=== PATIENT | female | born 1975 | race Caucasian/White ===

== ENCOUNTER 2022-03-24 13:25 | Outpatient (CLI) | payer OTHER, SELFPAY ==
--- NOTE | 2022-03-24 13:45 | CRLHL7_ITS ---
For Patients: As a result of the Cures Act, medical imaging exams and procedure reports are released immediately into your electronic medical record. You may view this report before your referring provider. If you have questions, please contact your health care provider. INDICATION: Migraines. TECHNIQUE: Brain MRI without contrast. The following sequences were obtained: Sagittal T1 weighted sequence. DWI and ADC mapping sequences. Axial FLAIR and ALEXANDRA T2 weighted sequences. COMPARISON: None. FINDINGS: No evidence of acute ischemia. No evidence of acute or chronic intracranial blood products. No pathologic intracranial signal abnormality. No mass effect or herniation. No hydrocephalus or extra-axial collections. The pituitary gland, parasellar structures and optic chiasm are normal. Posterior fossa is normal. All the major intracranial vascular structures demonstrate normal flow-related signal. The orbital contents are normal. No calvarial or skull base marrow replacing process. Moderate right maxillary mucosal thickening with dependent frothy secretions. No extracranial soft tissue findings. IMPRESSION: 1. No significant intracranial pathology. Dictated by Germain Saez MD @ 03/24/2022 2:44:48 PM (Electronically Signed)
== END 2022-03-24 13:26 | disposition home or self-care (01) ==
LOC: MRI 13:26
PROVIDERS: PCP Family Medicine; Visit Provider Family Medicine
DX: G44.009 Cluster headache syndrome, unspecified, not intractable (principal)
CPT/HCPCS: 70551

== ENCOUNTER 2022-06-09 14:28 | Outpatient (CLI) | payer OTHER, SELFPAY ==
--- NOTE | 2022-06-09 14:40 | CRLHL7_ITS ---
For Patients: As a result of the Century Cures Act, medical imaging exams and procedure reports are released immediately into your electronic medical record. You may view this report before your referring provider. If you have questions, please contact your health care provider. BILATERAL SCREENING MAMMOGRAM WITH COMPUTER-AIDED DETECTION AND TOMOSYNTHESIS TECHNIQUE: CC and MLO views were obtained. These mammographic images have been obtained using full-field digital technique. These mammographic images were interpreted with the benefit of computer-aided detection. Breast Tomosynthesis was used in this interpretation. COMPARISON FILM: 09/21/18. FINDINGS: The breasts are heterogeneously dense, which may obscure small masses IMPRESSION: There is no radiographic evidence for malignancy. ASSESSMENT: BI-RADS Category 1: Negative RECOMMENDATION: Routine screening mammogram in 1 year. A lay language report of this examination will be provided to the patient. Eladio Tomlin M.D. Diagnostic Radiologist [email or web address] MELCHOR/Dictated by: Eladio Tomlin MD @ 06/10/2022 8:42:00 AM (Electronically Signed)
== END 2022-06-09 14:29 | disposition home or self-care (01) ==
LOC: MAMMO 14:29
PROVIDERS: PCP Physician Assistant Medical; Visit Provider Physician Assistant
DX: Z12.31 Encounter for screening mammogram for malignant neoplasm of breast (principal); R92.2 Inconclusive mammogram
CPT/HCPCS: 77063; 77067

== ENCOUNTER 2022-07-04 06:51 | Observation (INO) | payer OTHER, SELFPAY ==
[2022-07-04] VITALS (19 sets, daily range): BP systolic 115–154; BP diastolic 70–94; PULSE 70–98; RESP 16–20; TEMP 36.8; O2SAT 93–99; BMI 29.3; BMI 28.8
--- NOTE | 2022-07-04 07:29 | CRLHL7_ITS ---
For Patients: As a result of the 21st Century Cures Act, medical imaging exams and procedure reports are released immediately into your electronic medical record. You may view this report before your referring provider. If you have questions, please contact your health care provider. INDICATION: Clinical signs and symptoms of pulmonary embolus. COMPARISON: None TECHNIQUE: : CT examination of the chest was performed with the uneventful intravenous administration of 95 cc of Isovue 3 7 while thin axial sections were obtained from above the apices of the lungs to the lung bases. Please note that all CT scans at this facility use dose modulation, iterative reconstruction, and/or weight-based dosing when appropriate to reduce radiation dose to as low as reasonably achievable. FINDINGS: : HEART and MEDIASTINUM: The heart size is normal. There is no mediastinal or hilar adenopathy or mass. PULMONARY ARTERIAL CIRCULATION: There is a small clot burden pulmonary embolus primarily involving the left lower lobe. RV/LV ratio: Elevated at 1.3. Greater than 0.9 is considered indicative of right heart strain LUNGS: Left basilar airspace process probably atelectasis. PLEURAL SPACES: Small left effusion VISUALIZED UPPER ABDOMEN: The upper pole of the left kidney as visualized appears abnormal. There is a mass laterally in the left upper pole measuring 2.8 centimeters. There is also a small amount of fluid in the lateral conal fascia. This could be a subacute renal infarct, acute pyelonephritis or a mass. Follow-up for formal evaluation recommended at a clinically appropriate time. A multiphase CT could be performed. An ultrasound could also be considered. OSSEOUS STRUCTURES: Age-appropriate appearance. No acute fracture or destructive process. TUBES and LINES: None. CHEST WALL: Prominent bilateral axillary lymph nodes, likely reactive I discussed this case with Dr. Pressley at 8:30 a.m. on July 04, 2022 IMPRESSION: 1. Small clot burden pulmonary embolus primarily involving the left lower lobe. Left lower lobe atelectasis and left effusion. 2. There is evidence of right heart strain as indicated by an elevated RV/LV ratio of 1.3 3. Prominent bilateral axillary lymph nodes likely reactive 4. Left renal mass measuring 2.8 centimeters. Differential considerations are subacute renal infarct, acute pyelonephritis or a mass. Follow-up recommended at a clinically appropriate time Please note that all CT scans at this facility use dose modulation, iterative reconstruction, and/or weight-based dosing when appropriate to reduce radiation dose to as low as reasonably achievable. Dictated by Israel Quiroz MD @ 07/04/2022 8:32:35 AM (Electronically Signed)
--- NOTE | 2022-07-04 07:33 | ED.CHESTPAIN ---
HPI - Chest Pain General Chief Complaint: Rib Pain <Emerita Hoffman MD - Last Filed: 07/04/22 07:57> Stated Complaint: Chest pain/arm numbness <Emerita Hoffman MD - Last Filed: 07/04/22 07:57> Time Seen by Provider: 07/04/22 07:09 <Emerita Hoffman MD - Last Filed: 07/04/22 07:57> Source: patient <Emerita Hoffman MD - Last Filed: 07/04/22 07:57> Mode of arrival: ambulatory <Emerita Hoffman MD - Last Filed: 07/04/22 07:57> Limitations: no limitations <Emerita Hoffman MD - Last Filed: 07/04/22 07:57> History of Present Illness HPI narrative: 47-year-old female on combined oral contraceptive presents to the emergency department with left anterior ribs/epigastric pain for the past 1-2 weeks, worsening significantly this morning at 2:00 a.m.. Pain is worse with inspiration and does somewhat radiate now with an achy pain to the left shoulder. Initially was sharp. It was accompanied by a sensation of numbness in both arms that lasted about 1-2 minutes. The numbness has mostly resolved. She reports that she has also been having some intermittent numbness in her 4th and 5th fingers on the right hand but thinks that that is positional and not related to current symptoms on my specific questioning. She does have a notable history of ocular migraines and was worked up for these through my clinic within the past year. She has been using NSAIDs most days as well as rare use of muscle relaxants. Overall, this is working fairly well. She has no history of DVT nor PE. Her chest pain is not exertional. She does have an family history of heart disease but not premature ages. As stated she does take a combined oral contraceptive which we have discussed tapering off of in the past. She had initially thought that her symptoms could be bowel related. She is status post cholecystectomy. No significant alcohol ingestion or prior history of pancreatitis. She has not noted any rash that would be consistent with shingles. She did not try taking any other medication prior to coming to the ED this morning with her symptoms. She states that she has had a low-grade fever around 99.5 intermittently for the last few days but no other localizing symptoms of acute illness. Dinner last night because they got home late from social events was chicken nuggets with mac and cheese, but not atypical. Past medical history is notable for depression, ocular migraines. Surgical history is notable for prior cholecystectomy. Family history does have some heart disease but not overwhelmingly premature. Home meds are high-dose combined oral contraceptive and citalopram 20 mg once daily. She also has a prescription for citalopram which she uses for her migraines, last use once within the last few days. <Emerita Hoffman MD - Last Filed: 07/04/22 07:57> Related Data Home Medications: Home Medications Medication Instructions Recorded Confirmed citalopram 20 mg tablet 20 mg PO DAILY 07/04/22 07/04/22 cyclobenzaprine 5 mg tablet 5 mg PO TID PRN 07/04/22 07/04/22 norethindrone 1.5 mg-ethinyl 1 tab PO DAILY 07/04/22 07/04/22 estradiol 30 mcg(21)/iron 75 mg(7) tablet (Junel FE 1.5/30 (28)) <Emerita Hoffman MD - Last Filed: 07/04/22 07:57> Allergies/Adverse Reactions: Allergies Allergy/AdvReac Type Severity Reaction Status Date / Time No Known Drug Allergies Allergy Verified 07/04/22 07:58 <Emerita Hoffman MD - Last Filed: 07/04/22 07:57> Review of Systems Narrative Notable for the generalized, chest and GI symptoms as above. Otherwise she denies times 10 systems. <Emerita Hoffman MD - Last Filed: 07/04/22 07:57> [facility] Medical History: Medical History Anxiety and depression Conjunctivitis Kidney stone Sacroiliac pain Vertigo <Emerita Hoffman MD - Last Filed: 07/04/22 07:57> Surgical History: Surgical History History of cholecystectomy <Emerita Hoffman MD - Last Filed: 07/04/22 07:57> Social History: Social History Smoking Status: Never smoker Second hand tobacco smoke exposure: No How often do you have a drink containing alcohol: never How often do you have six or more drinks on one occasion: Never AUDIT-C Alcohol total score: 0 Non-prescribed substance use: denies use <Emerita Hoffman MD - Last Filed: 07/04/22 07:57> Exam Const Vital Signs, click to edit/add: Vital Signs - 24 hr 07/04/22 07:04 07/04/22 09:12 Temperature 98.2 F Pulse Rate [Right Pulse Oximeter] 97 Respiratory Rate 18 Blood Pressure [Right Upper Arm] 154/94 H Pulse Oximetry 99 95 Oxygen Delivery Method Room Air <Emerita Hoffman MD - Last Filed: 07/04/22 07:57> Vital Signs - 24 hr 07/04/22 07:04 07/04/22 09:12 Temperature 98.2 F Pulse Rate [Right Pulse Oximeter] 97 Respiratory Rate 18 Blood Pressure [Right Upper Arm] 154/94 H Pulse Oximetry 99 95 Oxygen Delivery Method Room Air <Nirmala Pressley MD - Last Filed: 07/04/22 11:25> Documenting provider has reviewed patient's vital signs: yes <Emerita Hoffman MD - Last Filed: 07/04/22 07:57> Common normals: no apparent distress <Emerita Hoffman MD - Last Filed: 07/04/22 07:57> General appearance: cooperative, comfortable and well kempt <Emerita Hoffman MD - Last Filed: 07/04/22 07:57> HENMT Common normals: normocephalic <Emerita Hoffman MD - Last Filed: 07/04/22 07:57> Head and scalp: normocephalic <Emerita Hoffman MD - Last Filed: 07/04/22 07:57> Mouth: oral and palatal mucosa normal <Emerita Hoffman MD - Last Filed: 07/04/22 07:57> Throat: posterior oropharynx normal <Emerita Hoffman MD - Last Filed: 07/04/22 07:57> Eye Common normals: EOMs intact bilaterally, conjunctivae normal and no scleral icterus <MD Irma Fournier Last Filed: 07/04/22 07:57> Conjunctiva: conjunctiva(e) normal <MD Irma Fournier Last Filed: 07/04/22 07:57> Neck & C-Spine Common normals: full ROM, no lymphadenopathy and no meningeal signs <MD Irma Fournier Last Filed: 07/04/22 07:57> Resp Common normals: normal respiratory effort and clear to auscultation bilaterally <MD Irma Fournier Last Filed: 07/04/22 07:57> Auscultation: clear to auscultation bilaterally; no crackles, no rales, no rhonchi, no wheezes and lung sounds not diminished <MD Irma Fournier Last Filed: 07/04/22 07:57> Cardio Common normals: regular rate, regular rhythm, S1 normal heart sound, S2 normal heart sound and peripheral pulses 2+ throughout; murmurs detected <MD Irma Fournier Last Filed: 07/04/22 07:57> Rate: regular rate <MD Irma Fournier Last Filed: 07/04/22 07:57> Rhythm: regular rhythm <MD Irma Fournier Last Filed: 07/04/22 07:57> Heart sounds: S1 normal and S2 normal <MD Irma Fournier Last Filed: 07/04/22 07:57> Peripheral pulses: pulses 2+ throughout <MD Irma Fournier Last Filed: 07/04/22 07:57> GI Common normals: Normal to inspection, nondistended, normoactive bowel sounds present, soft to palpation, non-tender, no hepatosplenomegaly and no masses <MD Irma Fournier Last Filed: 07/04/22 07:57> Palpation: soft and no hepatosplenomegaly <MD Irma Fournier Last Filed: 07/04/22 07:57> Common normals: no CVA tenderness <Emerita Hoffman MD - Last Filed: 07/04/22 07:57> Bladder/kidney exam: no CVA tenderness <Emerita Hoffman MD - Last Filed: 07/04/22 07:57> Back & Pelvis Common normals: no CVA tenderness <Emerita Hoffman MD - Last Filed: 07/04/22 07:57> Extremity Common normals: full ROM, normal capillary refill and no pedal edema <Emerita Hoffman MD - Last Filed: 07/04/22 07:57> Neuro Meningeal signs: no meningeal signs <Emerita Hoffman MD - Last Filed: 07/04/22 07:57> Speech: speech normal <Emerita Hoffman MD - Last Filed: 07/04/22 07:57> Motor exam: strength 5/5 throughout, no tremor noted and no movement abnormalities noted <Emerita Hoffman MD - Last Filed: 07/04/22 07:57> Psych Common normals: thought process normal and speech normal <Emerita Hoffman MD - Last Filed: 07/04/22 07:57> Appearance: well kempt <Emerita Hoffman MD - Last Filed: 07/04/22 07:57> Attitude: engaged <Emerita Hoffman MD - Last Filed: 07/04/22 07:57> Activity/motor behavior: appropriate eye contact <Emerita Hoffman MD - Last Filed: 07/04/22 07:57> Speech: normal speech <Emerita Hoffman MD - Last Filed: 07/04/22 07:57> Mood and affect: euthymic mood <MD Irma Fournier Last Filed: 07/04/22 07:57> Thought process: normal thought process <MD Irma Fournier Last Filed: 07/04/22 07:57> Thought content: normal thought content <MD Irma Fournier Last Filed: 07/04/22 07:57> Attention/concentration: attention grossly intact <Emerita Hoffman MD - Last Filed: 07/04/22 07:57> Memory/cognition: memory grossly intact <Emerita Hoffman MD - Last Filed: 07/04/22 07:57> Insight: insight good <Emerita Hoffman MD - Last Filed: 07/04/22 07:57> Judgement: judgment good <Emerita Hoffman MD - Last Filed: 07/04/22 07:57> Skin Common normals: no rashes or lesions noted <Emerita Hoffman MD - Last Filed: 07/04/22 07:57> General skin exam: no rashes or lesions noted <Emerita Hoffman MD - Last Filed: 07/04/22 07:57> Course Course Hospital Course: Labs returned with an elevated D-dimer, patient proceeded to chest CT which did show a left-sided PE, right-sided heart strain and abnormality of the left kidney. Renal ultrasound shows a mass of the left kidney and multiphase CT or MRI recommended. Given her left heart strain, echocardiogram also recommended. <Emerita Hoffman MD - Last Filed: 07/04/22 07:57> Vital Signs Vital signs: Initial Vital Signs Temperature 98.2 F 07/04/22 07:04 Temperature Source Temporal Artery Scan 07/04/22 07:04 Pulse Rate 97 07/04/22 07:04 Respiratory Rate 18 07/04/22 07:04 Blood Pressure 154/94 H 07/04/22 07:04 Blood Pressure Mean 114 07/04/22 07:04 Blood Pressure Position Sitting 07/04/22 07:04 Pulse Oximetry 99 07/04/22 07:04 Oxygen Delivery Method 07/04/22 07:04 Vital Signs Temperature 98.2 F 07/04/22 07:04 Pulse Rate 97 07/04/22 07:04 Respiratory Rate 18 07/04/22 07:04 Blood Pressure 154/94 H 07/04/22 07:04 Pulse Oximetry 99 07/04/22 07:04 Oxygen Delivery Method 07/04/22 07:04 Temperature 98.2 F 07/04/22 07:04 Pulse Rate 97 07/04/22 07:04 Respiratory Rate 18 07/04/22 07:04 Blood Pressure 154/94 H 07/04/22 07:04 Pulse Oximetry 95 07/04/22 09:12 Oxygen Delivery Method 07/04/22 07:04 <Emerita Hoffman MD - Last Filed: 07/04/22 07:57> Initial Vital Signs Temperature 98.2 F 07/04/22 07:04 Temperature Source Temporal Artery Scan 07/04/22 07:04 Pulse Rate 97 07/04/22 07:04 Respiratory Rate 18 07/04/22 07:04 Blood Pressure 154/94 H 07/04/22 07:04 Blood Pressure Mean 114 07/04/22 07:04 Blood Pressure Position Sitting 07/04/22 07:04 Pulse Oximetry 99 07/04/22 07:04 Oxygen Delivery Method 07/04/22 07:04 Vital Signs Temperature 98.2 F 07/04/22 07:04 Pulse Rate 97 07/04/22 07:04 Respiratory Rate 18 07/04/22 07:04 Blood Pressure 154/94 H 07/04/22 07:04 Pulse Oximetry 99 07/04/22 07:04 Oxygen Delivery Method 07/04/22 07:04 Temperature 98.2 F 07/04/22 07:04 Pulse Rate 97 07/04/22 07:04 Respiratory Rate 18 07/04/22 07:04 Blood Pressure 154/94 H 07/04/22 07:04 Pulse Oximetry 95 07/04/22 09:12 Oxygen Delivery Method 07/04/22 07:04 <Nirmala Pressley MD - Last Filed: 07/04/22 11:25> MDM - Chest Pain MDM Narrative Medical decision making narrative: Differential diagnosis including shingles which was ruled out by exam, acute coronary syndrome, more likely pulmonary embolism based on risk factors of female gender, use of oral contraception containing estrogen. Atypical pneumonia, gastritis, gastric ulcer, GERD, pancreatitis, musculoskeletal etiology. Offered pain medication, she declines at this time which is reasonable. Would recommend that we start with IV, labs, urine test I would recommend that we moved to CT PA based on the oral contraception and pulse near 100. If this is negative, I would recommend medications to target a GI etiology as the next steps. Patient will be placed on a quality assurance monitor. <Emerita Hoffman MD - Last Filed: 07/04/22 07:57> Differential diagnosis including shingles which was ruled out by exam, acute coronary syndrome, more likely pulmonary embolism based on risk factors of female gender, use of oral contraception containing estrogen. Atypical pneumonia, gastritis, gastric ulcer, GERD, pancreatitis, musculoskeletal etiology. Offered pain medication, she declines at this time which is reasonable. Would recommend that we start with IV, labs, urine test I would recommend that we moved to CT PA based on the oral contraception and pulse near 100. If this is negative, I would recommend medications to target a GI etiology as the next steps. Patient will be placed on a quality assurance monitor. 47-year-old female with PE, renal mass of unclear etiology, right heart strain. Patient will be admitted for further management. <Nirmala Pressley MD - Last Filed: 07/04/22 11:25> Medical Records Data Attestation: I reviewed the patient's medical records. <Emerita Hoffman MD - Last Filed: 07/04/22 07:57> Lab Data Attestation: I reviewed the patient's lab results. <Nirmala Pressley MD - Last Filed: 07/04/22 11:25> Labs: Lab Results 07/04/22 07/04/22 07/04/22 Range/Units 07:38 07:38 07:38 WBC 8.57 (4.50-11.00) K/uL RBC 3.79 L (4.00-5.20) m/uL Hgb 11.8 L (12.0-16.0) gm/dL Hct 34.2 (33.0-51.0) % MCV 90 (80-100) fL MCH 31 (26-34) pg MCHC 35 (32-36) gm/dL RDW Coeff of Shad 12.4 (11.5-15.5) % Plt Count 350 (140-440) K/uL Neut % (Auto) 85.0 H (42.0-72.0) % Lymph % (Auto) 10.0 L (20-44) % [place] % (Auto) 4.0 (0.0-11.0) % Eos % (Auto) 0.4 (0.0-7.0) % Baso % (Auto) 0.5 (0.0-3.0) % Neut # (Auto) 7.30 H (1.7-7.0) K/uL Lymph # (Auto) 0.90 (0.90-2.90) K/uL [place] # (Auto) 0.30 (0.00-0.90) K/UL Eos # (Auto) 0.03 (0.00-0.50) K/uL Baso # (Auto) 0.04 (0.00-0.30) K/uL Abs Immat Gran (auto) 0.01 (0.00-0.30) K/uL D-Dimer Quant (PE/DVT) 1.05 H (0.00-0.50) ug/ml Sodium 139 (135-149) mmol/L Potassium 3.6 (3.6-5.1) mmol/L Chloride 104 (96-114) mmol/L Carbon Dioxide 26 (20-32) mmol/L BUN 12 (5-24) mg/dL Creatinine 0.7 (0.5-1.5) mg/dL Estimated Creat Clear 72.90 Estimated GFR 109 ml/min Glucose 107 (60-115) mg/dL Calcium 9.1 (8.4-10.6) mg/dL Total Bilirubin 0.5 (0.1-1.5) mg/dL AST 26 (12-35) U/L ALT 24 (4-35) U/L Alkaline Phosphatase 109 (40-150) U/L Troponin I (0.01-0.04) ng/mL C-Reactive Protein (0.5-1.0) mg/dL NT-Pro-B Natriuret Pep (0-125) PG/mL Total Protein 7.6 (6.0-8.3) g/dL Albumin 4.2 (3.3-5.0) g/dL Lipase (23-300) U/L HCG, Qual (Negative) Urine Color (Yellow) Urine Appearance (Clear) Urine pH (5.0-8.5) Ur Specific [place] (1.000-1.030) Urine Protein (Negative) Urine Glucose (UA) (Negative) Urine Ketones (Negative) Urine Blood (Negative) Urine Nitrite (Negative) Urine Bilirubin (Negative) Urine Urobilinogen (0.2-1.0) Ur Leukocyte Esterase (Negative) Urine RBC (0-2) Urine WBC (0-5) Ur Squamous Epith Cells (None-Few) Amorphous Sediment (None) Urine Bacteria (None) POC Troponin I (0.01-0.04) ng/ml 07/04/22 07/04/22 07/04/22 Range/Units 07:38 07:38 07:38 WBC (4.50-11.00) K/uL RBC (4.00-5.20) m/uL Hgb (12.0-16.0) gm/dL Hct (33.0-51.0) % MCV (80-100) fL MCH (26-34) pg MCHC (32-36) gm/dL RDW Coeff of Shad (11.5-15.5) % Plt Count (140-440) K/uL Neut % (Auto) (42.0-72.0) % Lymph % (Auto) (20-44) % [place] % (Auto) (0.0-11.0) % Eos % (Auto) (0.0-7.0) % Baso % (Auto) (0.0-3.0) % Neut # (Auto) (1.7-7.0) K/uL Lymph # (Auto) (0.90-2.90) K/uL [place] # (Auto) (0.00-0.90) K/UL Eos # (Auto) (0.00-0.50) K/uL Baso # (Auto) (0.00-0.30) K/uL Abs Immat Gran (auto) (0.00-0.30) K/uL D-Dimer Quant (PE/DVT) (0.00-0.50) ug/ml Sodium (135-149) mmol/L Potassium (3.6-5.1) mmol/L Chloride (96-114) mmol/L Carbon Dioxide (20-32) mmol/L BUN (5-24) mg/dL Creatinine (0.5-1.5) mg/dL Estimated Creat Clear Estimated GFR ml/min Glucose (60-115) mg/dL Calcium (8.4-10.6) mg/dL Total Bilirubin (0.1-1.5) mg/dL AST (12-35) U/L ALT (4-35) U/L Alkaline Phosphatase (40-150) U/L Troponin I (0.01-0.04) ng/mL C-Reactive Protein 3.9 H (0.5-1.0) mg/dL NT-Pro-B Natriuret Pep (0-125) PG/mL Total Protein (6.0-8.3) g/dL Albumin (3.3-5.0) g/dL Lipase 64 (23-300) U/L HCG, Qual Negative (Negative) Urine Color (Yellow) Urine Appearance (Clear) Urine pH (5.0-8.5) Ur Specific [place] (1.000-1.030) Urine Protein (Negative) Urine Glucose (UA) (Negative) Urine Ketones (Negative) Urine Blood (Negative) Urine Nitrite (Negative) Urine Bilirubin (Negative) Urine Urobilinogen (0.2-1.0) Ur Leukocyte Esterase (Negative) Urine RBC (0-2) Urine WBC (0-5) Ur Squamous Epith Cells (None-Few) Amorphous Sediment (None) Urine Bacteria (None) POC Troponin I 0.01 (0.01-0.04) ng/ml 07/04/22 07/04/22 Range/Units 07:38 08:55 WBC (4.50-11.00) K/uL RBC (4.00-5.20) m/uL Hgb (12.0-16.0) gm/dL Hct (33.0-51.0) % MCV (80-100) fL MCH (26-34) pg MCHC (32-36) gm/dL RDW Coeff of Shad (11.5-15.5) % Plt Count (140-440) K/uL Neut % (Auto) (42.0-72.0) % Lymph % (Auto) (20-44) % [place] % (Auto) (0.0-11.0) % Eos % (Auto) (0.0-7.0) % Baso % (Auto) (0.0-3.0) % Neut # (Auto) (1.7-7.0) K/uL Lymph # (Auto) (0.90-2.90) K/uL [place] # (Auto) (0.00-0.90) K/UL Eos # (Auto) (0.00-0.50) K/uL Baso # (Auto) (0.00-0.30) K/uL Abs Immat Gran (auto) (0.00-0.30) K/uL D-Dimer Quant (PE/DVT) (0.00-0.50) ug/ml Sodium (135-149) mmol/L Potassium (3.6-5.1) mmol/L Chloride (96-114) mmol/L Carbon Dioxide (20-32) mmol/L BUN (5-24) mg/dL Creatinine (0.5-1.5) mg/dL Estimated Creat Clear Estimated GFR ml/min Glucose (60-115) mg/dL Calcium (8.4-10.6) mg/dL Total Bilirubin (0.1-1.5) mg/dL AST (12-35) U/L ALT (4-35) U/L Alkaline Phosphatase (40-150) U/L Troponin I < 0.01 L (0.01-0.04) ng/mL C-Reactive Protein (0.5-1.0) mg/dL NT-Pro-B Natriuret Pep 470 H (0-125) PG/mL Total Protein (6.0-8.3) g/dL Albumin (3.3-5.0) g/dL Lipase (23-300) U/L HCG, Qual (Negative) Urine Color Yellow (Yellow) Urine Appearance Clear (Clear) Urine pH 7.0 (5.0-8.5) Ur Specific [place] 1.010 (1.000-1.030) Urine Protein Negative (Negative) Urine Glucose (UA) Negative (Negative) Urine Ketones Negative (Negative) Urine Blood 1+ A (Negative) Urine Nitrite Negative (Negative) Urine Bilirubin Negative (Negative) Urine Urobilinogen 1.0 (0.2-1.0) Ur Leukocyte Esterase 1+ A (Negative) Urine RBC 0-2 (0-2) Urine WBC 2-5 (0-5) Ur Squamous Epith Cells Many A (None-Few) Amorphous Sediment Few A (None) Urine Bacteria Moderate A (None) POC Troponin I (0.01-0.04) ng/ml <Emerita Hoffman MD - Last Filed: 07/04/22 07:57> Lab Results 07/04/22 07/04/22 07/04/22 Range/Units 07:38 07:38 07:38 WBC 8.57 (4.50-11.00) K/uL RBC 3.79 L (4.00-5.20) m/uL Hgb 11.8 L (12.0-16.0) gm/dL Hct 34.2 (33.0-51.0) % MCV 90 (80-100) fL MCH 31 (26-34) pg MCHC 35 (32-36) gm/dL RDW Coeff of Shad 12.4 (11.5-15.5) % Plt Count 350 (140-440) K/uL Neut % (Auto) 85.0 H (42.0-72.0) % Lymph % (Auto) 10.0 L (20-44) % [place] % (Auto) 4.0 (0.0-11.0) % Eos % (Auto) 0.4 (0.0-7.0) % Baso % (Auto) 0.5 (0.0-3.0) % Neut # (Auto) 7.30 H (1.7-7.0) K/uL Lymph # (Auto) 0.90 (0.90-2.90) K/uL [place] # (Auto) 0.30 (0.00-0.90) K/UL Eos # (Auto) 0.03 (0.00-0.50) K/uL Baso # (Auto) 0.04 (0.00-0.30) K/uL Abs Immat Gran (auto) 0.01 (0.00-0.30) K/uL D-Dimer Quant (PE/DVT) 1.05 H (0.00-0.50) ug/ml Sodium 139 (135-149) mmol/L Potassium 3.6 (3.6-5.1) mmol/L Chloride 104 (96-114) mmol/L Carbon Dioxide 26 (20-32) mmol/L BUN 12 (5-24) mg/dL Creatinine 0.7 (0.5-1.5) mg/dL Estimated Creat Clear 72.90 Estimated GFR 109 ml/min Glucose 107 (60-115) mg/dL Calcium 9.1 (8.4-10.6) mg/dL Total Bilirubin 0.5 (0.1-1.5) mg/dL AST 26 (12-35) U/L ALT 24 (4-35) U/L Alkaline Phosphatase 109 (40-150) U/L Troponin I (0.01-0.04) ng/mL C-Reactive Protein (0.5-1.0) mg/dL NT-Pro-B Natriuret Pep (0-125) PG/mL Total Protein 7.6 (6.0-8.3) g/dL Albumin 4.2 (3.3-5.0) g/dL Lipase (23-300) U/L HCG, Qual (Negative) Urine Color (Yellow) Urine Appearance (Clear) Urine pH (5.0-8.5) Ur Specific [place] (1.000-1.030) Urine Protein (Negative) Urine Glucose (UA) (Negative) Urine Ketones (Negative) Urine Blood (Negative) Urine Nitrite (Negative) Urine Bilirubin (Negative) Urine Urobilinogen (0.2-1.0) Ur Leukocyte Esterase (Negative) Urine RBC (0-2) Urine WBC (0-5) Ur Squamous Epith Cells (None-Few) Amorphous Sediment (None) Urine Bacteria (None) POC Troponin I (0.01-0.04) ng/ml 07/04/22 07/04/22 07/04/22 Range/Units 07:38 07:38 07:38 WBC (4.50-11.00) K/uL RBC (4.00-5.20) m/uL Hgb (12.0-16.0) gm/dL Hct (33.0-51.0) % MCV (80-100) fL MCH (26-34) pg MCHC (32-36) gm/dL RDW Coeff of Shad (11.5-15.5) % Plt Count (140-440) K/uL Neut % (Auto) (42.0-72.0) % Lymph % (Auto) (20-44) % [place] % (Auto) (0.0-11.0) % Eos % (Auto) (0.0-7.0) % Baso % (Auto) (0.0-3.0) % Neut # (Auto) (1.7-7.0) K/uL Lymph # (Auto) (0.90-2.90) K/uL [place] # (Auto) (0.00-0.90) K/UL Eos # (Auto) (0.00-0.50) K/uL Baso # (Auto) (0.00-0.30) K/uL Abs Immat Gran (auto) (0.00-0.30) K/uL D-Dimer Quant (PE/DVT) (0.00-0.50) ug/ml Sodium (135-149) mmol/L Potassium (3.6-5.1) mmol/L Chloride (96-114) mmol/L Carbon Dioxide (20-32) mmol/L BUN (5-24) mg/dL Creatinine (0.5-1.5) mg/dL Estimated Creat Clear Estimated GFR ml/min Glucose (60-115) mg/dL Calcium (8.4-10.6) mg/dL Total Bilirubin (0.1-1.5) mg/dL AST (12-35) U/L ALT (4-35) U/L Alkaline Phosphatase (40-150) U/L Troponin I (0.01-0.04) ng/mL C-Reactive Protein 3.9 H (0.5-1.0) mg/dL NT-Pro-B Natriuret Pep (0-125) PG/mL Total Protein (6.0-8.3) g/dL Albumin (3.3-5.0) g/dL Lipase 64 (23-300) U/L HCG, Qual Negative (Negative) Urine Color (Yellow) Urine Appearance (Clear) Urine pH (5.0-8.5) Ur Specific [place] (1.000-1.030) Urine Protein (Negative) Urine Glucose (UA) (Negative) Urine Ketones (Negative) Urine Blood (Negative) Urine Nitrite (Negative) Urine Bilirubin (Negative) Urine Urobilinogen (0.2-1.0) Ur Leukocyte Esterase (Negative) Urine RBC (0-2) Urine WBC (0-5) Ur Squamous Epith Cells (None-Few) Amorphous Sediment (None) Urine Bacteria (None) POC Troponin I 0.01 (0.01-0.04) ng/ml 07/04/22 07/04/22 Range/Units 07:38 08:55 WBC (4.50-11.00) K/uL RBC (4.00-5.20) m/uL Hgb (12.0-16.0) gm/dL Hct (33.0-51.0) % MCV (80-100) fL MCH (26-34) pg MCHC (32-36) gm/dL RDW Coeff of Shad (11.5-15.5) % Plt Count (140-440) K/uL Neut % (Auto) (42.0-72.0) % Lymph % (Auto) (20-44) % [place] % (Auto) (0.0-11.0) % Eos % (Auto) (0.0-7.0) % Baso % (Auto) (0.0-3.0) % Neut # (Auto) (1.7-7.0) K/uL Lymph # (Auto) (0.90-2.90) K/uL [place] # (Auto) (0.00-0.90) K/UL Eos # (Auto) (0.00-0.50) K/uL Baso # (Auto) (0.00-0.30) K/uL Abs Immat Gran (auto) (0.00-0.30) K/uL D-Dimer Quant (PE/DVT) (0.00-0.50) ug/ml Sodium (135-149) mmol/L Potassium (3.6-5.1) mmol/L Chloride (96-114) mmol/L Carbon Dioxide (20-32) mmol/L BUN (5-24) mg/dL Creatinine (0.5-1.5) mg/dL Estimated Creat Clear Estimated GFR ml/min Glucose (60-115) mg/dL Calcium (8.4-10.6) mg/dL Total Bilirubin (0.1-1.5) mg/dL AST (12-35) U/L ALT (4-35) U/L Alkaline Phosphatase (40-150) U/L Troponin I < 0.01 L (0.01-0.04) ng/mL C-Reactive Protein (0.5-1.0) mg/dL NT-Pro-B Natriuret Pep 470 H (0-125) PG/mL Total Protein (6.0-8.3) g/dL Albumin (3.3-5.0) g/dL Lipase (23-300) U/L HCG, Qual (Negative) Urine Color Yellow (Yellow) Urine Appearance Clear (Clear) Urine pH 7.0 (5.0-8.5) Ur Specific [place] 1.010 (1.000-1.030) Urine Protein Negative (Negative) Urine Glucose (UA) Negative (Negative) Urine Ketones Negative (Negative) Urine Blood 1+ A (Negative) Urine Nitrite Negative (Negative) Urine Bilirubin Negative (Negative) Urine Urobilinogen 1.0 (0.2-1.0) Ur Leukocyte Esterase 1+ A (Negative) Urine RBC 0-2 (0-2) Urine WBC 2-5 (0-5) Ur Squamous Epith Cells Many A (None-Few) Amorphous Sediment Few A (None) Urine Bacteria Moderate A (None) POC Troponin I (0.01-0.04) ng/ml <Nirmala Pressley MD - Last Filed: 07/04/22 11:25> Imaging Data CT scan - chest: Attestation: I have reviewed the pertinent imaging results. <Nirmala Pressley MD - Last Filed: 07/04/22 11:25> Radiologist's impression: CT examination of the chest was performed with the uneventful intravenous administration of 95 cc of Isovue 3 7 while thin axial sections were obtained from above the apices of the lungs to the lung bases. Please note that all CT scans at this facility use dose modulation, iterative reconstruction, and/or weight-based dosing when appropriate to reduce radiation dose to as low as reasonably achievable. FINDINGS: : HEART and MEDIASTINUM: The heart size is normal. There is no mediastinal or hilar adenopathy or mass. PULMONARY ARTERIAL CIRCULATION: There is a small clot burden pulmonary embolus primarily involving the left lower lobe. RV/LV ratio: Elevated at 1.3. Greater than 0.9 is considered indicative of right heart strain LUNGS: Left basilar airspace process probably atelectasis. PLEURAL SPACES: Small left effusion VISUALIZED UPPER ABDOMEN: The upper pole of the left kidney as visualized appears abnormal. There is a mass laterally in the left upper pole measuring 2.8 centimeters. There is also a small amount of fluid in the lateral conal fascia. This could be a subacute renal infarct, acute pyelonephritis or a mass. Follow-up for formal evaluation recommended at a clinically appropriate time. A multiphase CT could be performed. An ultrasound could also be considered. OSSEOUS STRUCTURES: Age-appropriate appearance. No acute fracture or destructive process. TUBES and LINES: None. CHEST WALL: Prominent bilateral axillary lymph nodes, likely reactive I discussed this case with Dr. Pressley at 8:30 a.m. on July 04, 2022 IMPRESSION: 1. Small clot burden pulmonary embolus primarily involving the left lower lobe. Left lower lobe atelectasis and left effusion. 2. There is evidence of right heart strain as indicated by an elevated RV/LV ratio of 1.3 3. Prominent bilateral axillary lymph nodes likely reactive 4. Left renal mass measuring 2.8 centimeters. Differential considerations are subacute renal infarct, acute pyelonephritis or a mass. Follow-up recommended at a clinically appropriate time <Nirmala Pressley MD - Last Filed: 07/04/22 11:25> Renal ultrasound: Attestation: I have reviewed the pertinent imaging results. <Nirmala Pressley MD - Last Filed: 07/04/22 11:25> Radiologist's impression: Sonography the kidneys was performed. Comparison: The CT from earlier the same day Findings: The right kidney measures 11.2 x 4.7 x 5.0 centimeters. The cortex is normal 1.7 centimeters. There is no hydronephrosis or hydroureter The left kidney measures 10.7 x 4.5 x 5.0 centimeters. The cortex measures 1.9 centimeters. There is no hydronephrosis or hydroureter. The ultrasound confirms the impression of a left upper pole renal mass. This is relatively well circumscribed and not simple cystic. This measures 2.5 x 2.3 x 2.1 centimeters. Differential considerations include a neoplasm, a subacute infarct or a focal area of pyelonephritis. Infarcts or pyelonephritis both involute overtime. If either of those 2 are clinically suspected, recommend short-term follow-up evaluation to see how these overall. This could be in 2 weeks time. A more definitive evaluation for neoplasm would be a multiphase CT or multiphase MRI. Correlate with clinical scenario and laboratory values Impression: Left upper pole renal mass as described <iNrmala Pressley MD - Last Filed: 07/04/22 11:25> ECG Data Prior ECG tracings: not available for review <Emerita Hoffman MD - Last Filed: 07/04/22 07:57> Interpretation: Normal sinus rhythm with no obvious signs of ischemia. [place] is normal. The QT interval is slightly prolonged, not terribly unusual for someone using citalopram. ST segments otherwise appear appropriate with some slight flattening of the T-waves only. <Emerita Hoffman MD - Last Filed: 07/04/22 07:57> Discharge Plan Discharge Clinical Impression: Kidney mass, Pulmonary embolism <Emerita Hoffman MD - Last Filed: 07/04/22 07:57> Patient Disposition: Admitted As Inpatient <Emerita Hoffman MD - Last Filed: 07/04/22 07:57> Condition: Stable <Emerita Hoffman MD - Last Filed: 07/04/22 07:57> Prescriptions: No Action citalopram 20 mg tablet 20 mg PO DAILY Label Comments: TAKE 1 TABLET BY MOUTH DAILY cyclobenzaprine 5 mg tablet 5 mg PO TID PRN Label Comments: TAKE 1 TAB BY MOUTH 3 TIMES A DAY NEEDED FOR SEVERE HEADACHES, MAY CAUSE DROWSINESS norethindrone-e.estradiol-iron [ FE 1.5/30 (28)] 1.5 mg-30 mcg (21)/75 mg (7) tablet 1 tab PO DAILY Label Comments: TAKE 1 TAB BY MOUTH DAILY TO TAKE CONTINUOUSLY FOR 3 MONTHS AT A TIME, SKIPPING PLACEBO PILLS <Emerita Hoffman MD - Last Filed: 07/04/22 07:57> Follow Up/Referrals: Jose Joseph PA-C [Primary Care Provider] - <Emerita Hoffman MD - Last Filed: 07/04/22 07:57>
[2022-07-04 07:52] LABS: Basophils Absolute Auto 0.04 K/uL (0.00-0.30); Basophils Percent Auto 0.5 % (0.0-3.0); Eosinophils Absolute Auto 0.03 K/uL (0.00-0.50); Eosinophils Percent Auto 0.4 % (0.0-7.0); Hematocrit 34.2 % (33.0-51.0); Hemoglobin* 11.8 gm/dL (12.0-16.0); Immature Granulocytes Abs Auto 0.01 K/uL (0.00-0.30); Mean Corpuscular HGB Conc 35 gm/dL (32-36); Mean Corpuscular Hemoglobin 31 pg (26-34); Mean Corpuscular Volume 90 fL (80-100); Platelet Count* 350 K/uL (140-440); RDW Coefficient of Variation % 12.4 % (11.5-15.5); Red Blood Count 3.79 m/uL (4.00-5.20); Troponin, Point-of-Care* 0.01 ng/ml (0.01-0.04); White Blood Count* 8.57 K/uL (4.50-11.00)
[2022-07-04 07:56] LABS: Slide Review Reflex No
[2022-07-04 07:58] LABS: HCG Qualitative* Negative (Negative)
[2022-07-04 08:03] LABS: Chloride* 104 mmol/L (96-114)
[2022-07-04 08:04] LABS: Albumin* 4.2 g/dL (3.3-5.0); Potassium* 3.6 mmol/L (3.6-5.1); Sodium* 139 mmol/L (135-149)
[2022-07-04 08:06] LABS: Lipase* 64 U/L (23-300)
[2022-07-04 08:07] LABS: Alanine Aminotransferase* 24 U/L (4-35); Alkaline Phosphatase* 109 U/L (40-150); Aspartate Amino Transferase* 26 U/L (12-35); Bilirubin Total* 0.5 mg/dL (0.1-1.5); Blood Urea Nitrogen* 12 mg/dL (5-24); Calcium* 9.1 mg/dL (8.4-10.6); Carbon Dioxide* 26 mmol/L (20-32); Creatinine* 0.7 mg/dL (0.5-1.5); Estimated Glomerular Filt Rate 109 ml/min; Glucose* 107 mg/dL (60-115); Total Protein* 7.6 g/dL (6.0-8.3)
[2022-07-04 08:09] LABS: D Dimer Quantitative* 1.05 ug/ml (0.00-0.50)
[2022-07-04 08:10] LABS: C Reactive Protein* 3.9 mg/dL (0.5-1.0)
--- NOTE | 2022-07-04 08:29 | CRLHL7_ITS ---
For Patients: As a result of the Century Cures Act, medical imaging exams and procedure reports are released immediately into your electronic medical record. You may view this report before your referring provider. If you have questions, please contact your health care provider. Indication: Abnormal left kidney on CT with indeterminate imaging features. Technique: Sonography the kidneys was performed. Comparison: The CT from earlier the same day Findings: The right kidney measures 11.2 x 4.7 x 5.0 centimeters. The cortex is normal 1.7 centimeters. There is no hydronephrosis or hydroureter The left kidney measures 10.7 x 4.5 x 5.0 centimeters. The cortex measures 1.9 centimeters. There is no hydronephrosis or hydroureter. The ultrasound confirms the impression of a left upper pole renal mass. This is relatively well circumscribed and not simple cystic. This measures 2.5 x 2.3 x 2.1 centimeters. Differential considerations include a neoplasm, a subacute infarct or a focal area of pyelonephritis. Infarcts or pyelonephritis both involute overtime. If either of those 2 are clinically suspected, recommend short-term follow-up evaluation to see how these overall. This could be in 2 weeks time. A more definitive evaluation for neoplasm would be a multiphase CT or multiphase MRI. Correlate with clinical scenario and laboratory values Impression: Left upper pole renal mass as described Dictated by Israel Quiroz MD @ 07/04/2022 9:47:46 AM (Electronically Signed)
[2022-07-04 08:41] LABS: Appearance Urine Clear (Clear); Bilirubin Urine Negative (Negative); Blood Urine 1+ (Negative); Color Urine Yellow (Yellow); Glucose Urine Negative (Negative); Ketones Urine Negative (Negative); Leukocyte Esterase Urine 1+ (Negative); Nitrite Urine Negative (Negative); Protein Urine Negative (Negative)
[2022-07-04 09:00] LABS: Amorphous Sediment Urine Few; Bacteria Urine Moderate; RBC Urine 0-2 (0-2); Squamous Epithelial Cell Urine Many (None-Few)
[2022-07-04 09:21] LABS: NT Pro B Type NatriureticPept* 470 PG/mL (0-125)
[2022-07-04 09:27] LABS: Troponin I* < 0.01 ng/mL (0.01-0.04)
--- NOTE | 2022-07-04 10:31 | CRLHL7_ITS ---
For Patients: As a result of the Century Cures Act, medical imaging exams and procedure reports are released immediately into your electronic medical record. You may view this report before your referring provider. If you have questions, please contact your health care provider. Indication: Left renal mass. Technique: MRI of the abdomen without and with 20 cc Dotarem IV contrast. Comparison: Renal ultrasound 07/04/2022. CT chest 07/04/2022. Findings: Non cirrhotic configuration of the liver. The liver is mildly enlarged measuring 19.5 cm in length. No significant hepatic steatosis. There is a 0.7 cm benign hemangioma in the right hepatic dome. Cholecystectomy. Mild to moderate intra and extrahepatic bile duct dilation is likely related to post cholecystectomy state. The spleen, pancreas, and adrenal glands are negative. Hepatic and portal veins are patent. Normal enhancement of the right kidney. No hydronephrosis bilaterally. There is a somewhat wedge-shaped T1 and T2 isointense lesion in the upper pole of the left kidney with ill-defined angular margins. The lesion is predominantly hypoenhancing on the postcontrast phases with areas of linear internal enhancement and minimal diffusion restriction (series 19 image 36, series 21 image 83, series 13 image 90). The lesion measures approximately 1.8 x 2.3 x 2.8 cm in size. There is adjacent perinephric fat stranding and trace edema. No macroscopic or intravoxel fat identified. This does not have the typical appearance of a solid mass and could represent an infectious or inflammatory focus such as pyelonephritis versus subacute renal infarct. Renal arteries and veins appear patent. No bowel dilation. No free fluid or lymphadenopathy in the upper abdomen. Trace right and small left pleural effusions. Impression: 1. Indeterminate wedge-shaped predominantly hypoenhancing lesion in the upper pole of the left kidney which does not have the typical appearance of a solid mass. Findings could represent an infectious or inflammatory focus such as pyelonephritis, versus subacute renal infarct. Recommend short-term follow-up ultrasound or MRI to ensure resolution. 2. Mild hepatomegaly. 3. Small bilateral pleural effusions. 4. Findings discussed with Nirmala Pressley at 1:19 p.m. on 07/04/2022 Dictated by Magalie Ivey MD @ 07/04/2022 1:23:11 PM (Electronically Signed)
[2022-07-04 11:20] LABS: SARS PCR* Negative SARS-CoV-2 (Negative)
--- NOTE | 2022-07-04 14:41 | PC.NURSE ---
End of shift Note: Patient arrive to the unit around 1345 from the ER. Has not had any complaints since arrival. Have only cared for her for a short time awaiting orders from MD. Will continue to monitor until next shift.
--- NOTE | 2022-07-04 15:00 | P.IMHP_ITS ---
Hospitalist- H&P: HPI History of Present Illness Date Seen: 07/04/22 Chief complaint: Chest pain/arm numbness Narrative: ADMISSION HISTORY AND PHYSICAL - HOSPITALIST Chief Complaint: HPI: PAST MEDICAL HISTORY: Mild anxiety depression, on citalopram Chronic OCP use Ocular migraines MEDICATIONS: control pills Citalopram P.r.n. 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 Urine cultures pending CTA 1. Small clot burden pulmonary embolus primarily involving the left lower lobe. Left lower lobe atelectasis and left effusion. 2. There is evidence of right heart strain as indicated by an elevated RV/LV ratio of 1.3 3. Prominent bilateral axillary lymph nodes likely reactive 4. Left renal mass measuring 2.8 centimeters. Differential considerations are subacute renal infarct, acute pyelonephritis or a mass. Follow-up recommended at a clinically appropriate time Renal u/s The ultrasound confirms the impression of a left upper pole renal mass. This is relatively well circumscribed and not simple cystic. This measures 2.5 x 2.3 x 2.1 centimeters. Differential considerations include a neoplasm, a subacute infarct or a focal area of pyelonephritis. MRI - Abdomen 1. Indeterminate wedge-shaped predominantly hypoenhancing lesion in the upper pole of the left kidney which does not have the typical appearance of a solid mass. Findings could represent an infectious or inflammatory focus such as pyelonephritis, versus subacute renal infarct. Recommend short-term follow-up ultrasound or MRI to ensure resolution. 2. Mild hepatomegaly. 3. Small bilateral pleural effusions. -echo is normal with left ventricular size, thickness, function. EF 68%. REVIEW OF SYSTEMS: 12-point ROS completed with patient and negative unless otherwise stated in HPI or below. PHYSICAL EXAM: CODE STATUS: Full CONSTITUTIONAL: Conversive, good historian. A/O. Knows setting and context. VITAL SIGNS: see record. HEENT: Normocephalic, atraumatic. PERRL, EOMI, conjunctivae pink, no scleral icterus. Ears and nose externally normal. Pharynx normal. NECK: No JVD. No carotid bruit, no thyromegaly, no adenopathy. CHEST: Clear to auscultation bilaterally HEART: S1 and S2 normal. No harsh murmurs. Edema MUSCULOSKELETAL: No gross joint deformity or swelling. CVA/abdomen: Tender to palpation in the left flank. NEURO: Cranial nerves intact. Grossly intact. No asymmetric findings. SKIN: No rashes, petechiae, concerning changes PSYCHIATRIC: Euthymic. ADMIT DVT: Treatment dosed Lovenox, transitioning to oral anticoagulants likely GI: PO intake Time spent: 70 minutes examining patient, conferring with family and patient, care staff, developing care plan [facility] Medical History (Updated 07/04/22 @ 15:20 by Haydee Moseley MD) Anxiety and depression Surgical History History of cholecystectomy Social History Highest level of school completed/degree received: high school graduate Smoking Status: Never smoker Second hand tobacco smoke exposure: No How often do you have a drink containing alcohol: never How often do you have six or more drinks on one occasion: Never AUDIT-C Alcohol total score: 0 Non-prescribed substance use: denies use Caffeine: Yes (2 cups of coffee and diet dr. britt) service: No Meds Home Medications and Allergies Home Medications Medication Instructions Recorded Confirmed Type citalopram 20 mg tablet 20 mg PO DAILY 07/04/22 07/04/22 History cyclobenzaprine 5 mg tablet 5 mg PO TID PRN 07/04/22 07/04/22 History norethindrone 1.5 mg-ethinyl 1 tab PO DAILY 07/04/22 07/04/22 History estradiol 30 mcg(21)/iron 75 mg(7) tablet ( FE 1.5 (28)) Allergies Allergy/AdvReac Type Severity Reaction Status Date / Time No Known Drug Allergies Allergy Verified 07/04/22 07:58 Exam Const: Vital Signs, click to edit/add: Vital Signs - 24 hr 07/04/22 07:04 07/04/22 09:12 07/04/22 09:17 Temperature 98.2 F Pulse Rate 76 Pulse Rate [Left R adial] Pulse Rate [Right Pulse Oximeter] 97 Respiratory Rate 18 Blood Pressure 125/83 Blood Pressure [Le ft Arm] Blood Pressure [Ri ght Upper Arm] 154/94 H Pulse Oximetry 99 95 95 Oxygen Delivery Me thod Room Air 07/04/22 09:18 07/04/22 09:30 07/04/22 09:31 Temperature Pulse Rate 80 80 79 Pulse Rate [Left R adial] Pulse Rate [Right Pulse Oximeter] Respiratory Rate Blood Pressure 125/82 Blood Pressure [Le ft Arm] Blood Pressure [Ri ght Upper Arm] Pulse Oximetry 95 95 95 Oxygen Delivery Me thod 07/04/22 10:00 07/04/22 10:01 07/04/22 10:30 Temperature Pulse Rate 79 78 76 Pulse Rate [Left R adial] Pulse Rate [Right Pulse Oximeter] Respiratory Rate Blood Pressure 120/80 Blood Pressure [Le ft Arm] Blood Pressure [Ri ght Upper Arm] Pulse Oximetry 95 95 96 Oxygen Delivery Me thod 07/04/22 10:31 07/04/22 10:32 07/04/22 11:46 Temperature Pulse Rate 81 77 98 Pulse Rate [Left R adial] Pulse Rate [Right Pulse Oximeter] Respiratory Rate Blood Pressure 125/80 Blood Pressure [Le ft Arm] Blood Pressure [Ri ght Upper Arm] Pulse Oximetry 96 96 98 Oxygen Delivery Me thod 07/04/22 12:00 07/04/22 12:01 07/04/22 12:30 Temperature Pulse Rate 83 80 86 Pulse Rate [Left R adial] Pulse Rate [Right Pulse Oximeter] Respiratory Rate Blood Pressure 124/86 Blood Pressure [Le ft Arm] Blood Pressure [Ri ght Upper Arm] Pulse Oximetry 94 93 94 Oxygen Delivery Me thod 07/04/22 12:32 07/04/22 13:12 Temperature Pulse Rate 82 Pulse Rate [Left R adial] 94 Pulse Rate [Right Pulse Oximeter] Respiratory Rate 20 Blood Pressure 115/74 Blood Pressure [Le ft Arm] 122/75 Blood Pressure [Ri ght Upper Arm] Pulse Oximetry 94 96 Oxygen Delivery Me thod Room Air Hospitalist - H&P: Result Labs Labs: Short CBC 07/04/22 Range/Units 07:38 WBC 8.57 (4.50-11.00) K/uL Hgb 11.8 L (12.0-16.0) gm/dL Hct 34.2 (33.0-51.0) % Plt Count 350 (140-440) K/uL BMP 07/04/22 07:38 Sodium 139 Potassium 3.6 Chloride 104 Carbon Dioxide 26 BUN 12 Creatinine 0.7 Glucose 107 Calcium 9.1 Cardiac Enzymes 07/04/22 Range/Units 07:38 Troponin I < 0.01 L (0.01-0.04) ng/mL Liver Function 07/04/22 Range/Units 07:38 Total Bilirubin 0.5 (0.1-1.5) mg/dL AST 26 (12-35) U/L ALT 24 (4-35) U/L Alkaline Phosphatase 109 (40-150) U/L Albumin 4.2 (3.3-5.0) g/dL Urine 07/04/22 Range/Units 08:55 Urine Color Yellow (Yellow) Urine Appearance Clear (Clear) Urine pH 7.0 (5.0-8.5) Ur Specific [place] 1.010 (1.000-1.030) Urine Protein Negative (Negative) Urine Glucose (UA) Negative (Negative) Assessment and Plan Assessment and plan (1) Pulmonary embolism: Problem comment: [facility] use -echo reassuring, not on oxygen. EKG reviewed. Venous blood gas ordered. -stop OCPs, treatment dose enoxaparin at 1 make per kg q.12 initiated. Likely will need a novel anticoagulant at discharge. Status: Acute (2) Left renal mass: Problem comment: -UA is not overwhelmingly convincing for UTI. Culture pending. 1 g Rocephin given IV this afternoon. This is more likely a renal infarct. Treatment would be as above. -hematology outpatient consultation Status: Acute (3) UTI (urinary tract infection): Problem comment: -urine culture pending. Rocephin 1 g IV this afternoon. Status: Acute (4) Anxiety and depression: Problem comment: -continue home SSRI Status: Acute
[2022-07-04 15:29] LABS: HCO3 VBG 28 mmol/L (21-28); PCO2 VBG 38 mmHG (40-50); PO2 VBG 68.4 mmHG (25-47)
[2022-07-04] MEDS: ACETAMINOPHEN 325 MG TABLET PO (15:53)
[2022-07-04] MEDS: ENOXAPARIN 80 MG/0.8 ML INJ 70 MG SUBCUT (15:54)
[2022-07-04] MEDS: cefTRIAXone 1 GM in 0.9 % SODIUM CHLORIDE Mini-bag 100 ML IVPB (16:42)
--- NOTE | 2022-07-04 17:59 | PC.NURSE ---
Discharge- Patient is alert, oriented and independent. She denies chest pain, though does state there is some lingering discomfort. She also complains of headache- tylenol given. Discharge instructions given verbally and in print and all questions answered. IV discontinued with catheter intact. She leaves with significant other with all belongings at 1800.
== END 2022-07-04 18:00 | disposition home or self-care (01) ==
LOC: ED 11:25 → MEDSURG 12:59
PROVIDERS: Family Medicine; Admitting Provider Family Medicine; Emergency Provider Family Medicine; PCP Physician Assistant Medical; Visit Provider Family Medicine
DX: I26.99 Other pulmonary embolism without acute cor pulmonale (principal); N28.89 Other specified disorders of kidney and ureter; R10.13 Epigastric pain; M25.512 Pain in left shoulder; F41.9 Anxiety disorder, unspecified; F32.A Depression, unspecified; R20.0 Anesthesia of skin; R79.89 Other specified abnormal findings of blood chemistry; Z86.718 Personal history of other venous thrombosis and embolism; Z82.49 Family history of ischemic heart disease and other diseases of the circulatory system; Z90.49 Acquired absence of other specified parts of digestive tract; R07.81 Pleurodynia
CPT/HCPCS: 36415; 71260; 74183; 76775; 80053; 81001; 82803; 83690; 83880; 84484; 84703; 85025; 85379; 86140; 87086; 87635; 93005; 93306; 94761; 96365; 96372; 99285; A9270; A9575; G0378; G0379; J0696; J1650; Q9967

== ENCOUNTER 2022-07-27 16:52 | Outpatient (CLI) | payer OTHER, SELFPAY ==
--- NOTE | 2022-08-17 09:30 | ONC.NURNOTE ---
Oncology Transfer: Patient notified of change in provider groups effective 2022. She wishes to keep her appointment in [place] in August.
== END 2022-07-27 16:53 | disposition home or self-care (01) ==
LOC: LKVREF 16:53
PROVIDERS: PCP Physician Assistant Medical; Visit Provider Emergency Medicine
DX: L02.91 Cutaneous abscess, unspecified (principal)
CPT/HCPCS: 87070; 87186

== ENCOUNTER 2022-08-02 10:40 | Outpatient (CLI) | payer OTHER, SELFPAY ==
--- NOTE | 2022-08-02 11:00 | CRLHL7_ITS ---
For Patients: As a result of the Century Cures Act, medical imaging exams and procedure reports are released immediately into your electronic medical record. You may view this report before your referring provider. If you have questions, please contact your health care provider. INDICATION: Follow up left renal lesion. Pulmonary emboli July 04, 2022. Possible left renal infarct, pyelonephritis, or mass. TECHNIQUE: Multi phase CT of the abdomen performed with 76 cc nonionic Isovue-370. COMPARISON: Correlation is made with a contrast-enhanced chest CT July 04, 2022, ultrasound of the kidneys and urinary bladder July 04, 2022, and an MRI of the abdomen and pelvis July 04, 2022. FINDINGS: Pre contrast imaging demonstrates no evidence for renal stone. Surgically absent gallbladder. No splenomegaly or hydronephrosis. Postcontrast and delayed images demonstrate a subtle cortical defect along the superior lateral margin of left kidney. This may reflect sequelae from an infarct or prior infection. A true mass lesion is not identified. Please see for example image 41 series 3. The other visualized remaining solid upper abdominal organs are unremarkable. The visualized abdominal aorta and inferior vena cava are unremarkable. The included lung bases are clear. Normal included skeleton. IMPRESSION: Subtle contour deformity and a discrete focus of decreased attenuation on the contrast-enhanced series 3, image 41, along the superior lateral margin of left kidney most like an infarct or less likely the sequelae from prior infection. This does not appear to reflect a true mass lesion. Follow-up CT in 3-6 months may be helpful. The examination is otherwise unremarkable. Please note that all CT scans at this facility use dose modulation, iterative reconstruction, and/or weight-based dosing when appropriate to reduce radiation dose to as low as reasonably achievable. Dictated by Amadou Taylor MD @ 08/02/2022 7:07:25 PM (Electronically Signed)
== END 2022-08-02 10:41 | disposition home or self-care (01) ==
LOC: CT 10:40
PROVIDERS: PCP Physician Assistant Medical; Visit Provider Physician Assistant Medical
DX: N28.89 Other specified disorders of kidney and ureter (principal)
CPT/HCPCS: 74170; Q9967

== ENCOUNTER 2023-01-12 17:14 | Outpatient (CLI) | payer OTHER, SELFPAY | END 2023-01-12 17:15 | disposition home or self-care (01) | PROVIDERS: PCP Physician Assistant Medical; Visit Provider Family Medicine | DX: R42 Dizziness and giddiness (principal); G25.81 Restless legs syndrome; I26.99 Other pulmonary embolism without acute cor pulmonale | CPT/HCPCS: 80053; 82728; 84443 ==

== ENCOUNTER 2023-05-25 15:35 | Outpatient (CLI) | payer OTHER, SELFPAY ==
--- NOTE | 2023-05-25 16:00 | CRLHL7_ITS ---
For Patients: As a result of the Century Cures Act, medical imaging exams and procedure reports are released immediately into your electronic medical record. You may view this report before your referring provider. If you have questions, please contact your health care provider. INDICATION: Follow-up mass on left kidney TECHNIQUE: CT abdomen and pelvis acquired with IV contrast. COMPARISON: CT 05/05/2022 FINDINGS: Lower chest: Unremarkable. Liver: Unremarkable. Spleen: Unremarkable. Pancreas: Unremarkable. Gallbladder and bile ducts: Cholecystectomy biliary dilatation. Kidneys: Cortical defect along the left mid lateral kidney. The area of hypodensity previously seen is now less apparent without suspicious mass visualized. No suspicious defects opacified collecting in proximal ureters. Adrenal glands: Unremarkable. GI tract: Unremarkable. Vascular structures: Negative. No sign of aneurysm. Lymph nodes: Unremarkable. Miscellaneous: Unremarkable. No free air or significant free fluid. Pelvic Organs: Unremarkable. Bones: Unremarkable for age. IMPRESSION: Cortical defect left lateral mid kidney. Previous hypodensity at this location is less prominent no suspicious finding seen within the left kidney this likely reflects an area of scarring. Please note that all CT scans at this facility use dose modulation, iterative reconstruction, and/or weight-based dosing when appropriate to reduce radiation dose to as low as reasonably achievable. Dictated by Lesley Zuniga MD @ 05/27/2023 3:20:06 PM (Electronically Signed)
== END 2023-05-25 15:36 | disposition home or self-care (01) ==
LOC: CT 15:36
PROVIDERS: PCP Physician Assistant Medical; Visit Provider Physician Assistant Medical
DX: N28.89 Other specified disorders of kidney and ureter (principal)
CPT/HCPCS: 74170; Q9967

== ENCOUNTER 2023-09-05 15:00 | Outpatient (RCR) | payer OTHER, SELFPAY ==
[2023-04-13 14:09] LABS: Prothrombin Time 14.4 sec (12.0-15.5); Thrombin Time 16.9 sec (14.7-19.5); dRVVT Screen 40 sec (33-44)
[2023-04-13 14:10] LABS: BILL_PTTD Billed; BILL_TTR Billed
[2023-04-13 16:10] LABS: Protein C Functional 122 % (83-168); Protein S Functional 68 % (57-131)
[2023-04-13 20:33] LABS: Antithrombin, Enzymatic 109 % (76-128)
[2023-04-14 14:56] LABS: FACV Specimen Whole Blood; Factor V Leiden (F5) Mutation Negative
[2023-04-16 10:35] LABS: PT PCR Specimen Whole Blood; Prothrombin(F2)G20210A Variant Negative
[2023-04-28 00:14] LABS: B2Glycoprotein 1, IgG Antibody 116 SGU (<=20); B2Glycoprotein 1, IgM Antibody <10 SMU (<=20)
[2023-04-28 06:33] LABS: Cardiolipin Antibody IgA 41 APL (<=11); Cardiolipin Antibody IgG 85 GPL (<=14); Cardiolipin Antibody IgM 18 MPL (<=12)
== END 2023-10-08 23:59 | disposition home or self-care (01) ==
LOC: CCIC 15:00
PROVIDERS: PCP Physician Assistant Medical; Visit Provider Internal Medicine Hematology & Oncology
DX: I26.99 Other pulmonary embolism without acute cor pulmonale (principal); Z79.01 Long term (current) use of anticoagulants; N28.89 Other specified disorders of kidney and ureter
CPT/HCPCS: 36415; 81240; 81241; 85300; 85303; 85306; 85610; 85613; 85670; 85730; 85732; 86146; 86147; 99212; 99213; 99214

== ENCOUNTER 2023-10-28 11:42 | Emergency (ER) | payer OTHER, SELFPAY ==
[2023-10-28] VITALS (9 sets, daily range): BP systolic 122–133; BP diastolic 80–83; PULSE 70–96; RESP 16; TEMP 37.1; O2SAT 95–98; BMI 28.3
--- NOTE | 2023-10-28 12:49 | ED_ITS ---
HPI - General Adult General Chief complaint: Neuro Symptoms/Altered Deficit Stated complaint: numbness left side of body Time Seen by Provider: 10/28/23 11:43 History of Present Illness HPI narrative: This 48-year-old female comes in reporting some altered sensation in the right side of her body that began about 40 minutes prior to arrival. She states that she has been getting frequent or occasional occurrences of visual changes related to migraines. She has been to an eye doctor with normal exam. The patient does have a history of a deep venous thrombosis and was found to have a hypercoagulable state with anti Cardiolipin antibody genetic mutation. She is on Eliquis for life. She arrives here with normal vital signs. Does not report any weakness or altered speech. Related Data Home Medications Medication Instructions Recorded Confirmed cyclobenzaprine 5 mg tablet 5 mg PO TID PRN 07/04/22 10/04/23 cetirizine 10 mg capsule (All Day 10 mg PO QDAY PRN 07/19/22 10/04/23 Allergy (cetirizine)) acetaminophen 500 mg tablet 1,000 mg PO Q6H PRN 08/30/22 10/04/23 (Tylenol Extra Strength) apixaban 5 mg tablet (Eliquis) 5 mg PO BID 01/10/23 10/04/23 Previous Rx's Medication Instructions Recorded fluoxetine 20 mg capsule 20 mg PO QDAY #90 caps 10/04/23 norethindrone (contraceptive) 0.35 0.35 mg PO QDAY #84 tabs 10/23/23 mg tablet (Dianelys) Allergies Allergy/AdvReac Type Severity Reaction Status Date / Time No Known Drug Allergies Allergy Verified 10/28/23 11:58 Review of Systems Status of ROS: Reports: 10 or more systems reviewed and unremarkable except as noted in History and below Narrative: Constitutional: No fevers, no weight gain or loss. Eyes: No discharge. HENT: No congestion, no sore throat, no ear pain. Cardiovascular: No chest pain, no palpitations. Respiratory: No shortness of breath, no wheezes, no cough. Gastrointestinal: No abdominal pain, no vomiting, no diarrhea. Genitourinary: No dysuria, no hematuria. Musculoskeletal: Normal range of motion. Skin: No rashes, no pruritis. Neurological: No dizziness, weakness, speech change. Altered sensation on the right side as described above. Endo/Heme/Allergies: No bruising or bleeding. No polydipsia. Pysch: no suicidality, no anxiety, no insomnia. All other systems reviewed and are negative. [facility] Medical History (Updated 10/28/23 @ 12:54 by Soren Kelly MD) Lightheaded ?R42 - Dizziness and giddiness (ICD-10) Abscess ?L02.91 - Cutaneous abscess, unspecified (ICD-10) Uses oral contraceptives as primary control method ?Z78.9 - Other specified health status (ICD-10) History of renal calculi ?Z87.442 - Personal history of urinary calculi (ICD-10) Pulmonary embolism (~2021) ?I26.99 - Other pulmonary embolism without acute cor pulmonale (ICD-10) Anxiety and depression ?F41.9 - Anxiety disorder, unspecified (ICD-10) ?F32.A - Depression, unspecified (ICD-10) Surgical History History of cholecystectomy ?Z90.49 - Acquired absence of other specified parts of digestive tract (ICD- 10) Family History (Updated 07/14/22 @ 13:45 by Samanta Lopez) Mother Depression Aunt Ovarian cancer Paternal Grandfather FH: pancreatic cancer Social History Highest level of school completed/degree received: high school graduate Smoking Status: Never smoker Second hand tobacco smoke exposure: No How often do you have a drink containing alcohol: never How often do you have six or more drinks on one occasion: Never AUDIT-C Alcohol total score: 0 Non-prescribed substance use: denies use Caffeine: Yes (2 cups of coffee and diet dr. britt) Little interest or pleasure in doing things: nearly every day Feeling down, depressed, or hopeless: more than half the days service: No Exam Narrative: Exam Narrative: Constitutional: Well-developed, well-nourished, no acute distress. HEENT: Normocephalic, atraumatic. Neck: Normal range of motion. Nontender. Supple. Heart: Regular. No murmurs. Normal rate. Intact distal pulses. Lungs: Clear to auscultation. No chest discomfort. No wheezes, rhonchi, or rales. Abdomen: Normal bowel sounds. Nontender. No rebound tenderness. Genitalia: Deferred. Back: No midline tenderness. Normal range of motion. Extremities: Normal range of motion. No injury. Skin: Intact. No rash. Warm. No erythema or pallor. Neurologic: No altered sensation. No weakness. Alert and oriented. No facial asymmetry. Speech is normal. Tongue is midline. [id number] is normal. No pronator drift. Loader Operator/Ground Leader strength is equal bilaterally. She is able to raise each leg from the bed. She is ambulating normally. Psychiatric: No suicidality. No anxiety or depression. No insomnia. Nursing notes and vitals signs are reviewed. Const: Vital Signs, click to edit/add: Vital Signs - 24 hr 10/28/23 11:53 Temperature 98.7 F Pulse Rate [Pulse Oximeter] 96 Respiratory Rate 16 Blood Pressure [Le ft Upper Arm] 123/81 Pulse Oximetry 96 Oxygen Delivery Me thod Room Air Course Vital Signs Vital signs: Initial Vital Signs Temperature 98.7 F 10/28/23 11:53 Temperature Source Temporal Artery Scan 10/28/23 11:53 Pulse Rate 96 10/28/23 11:53 Respiratory Rate 16 10/28/23 11:53 Blood Pressure 123/81 10/28/23 11:53 Blood Pressure Mean 95 10/28/23 11:53 Blood Pressure Position Sitting 10/28/23 11:53 Pulse Oximetry 96 10/28/23 11:53 Oxygen Delivery Method Room Air 10/28/23 11:53 Vital Signs Temperature 98.7 F 10/28/23 11:53 Pulse Rate 96 10/28/23 11:53 Respiratory Rate 16 10/28/23 11:53 Blood Pressure 123/81 10/28/23 11:53 Pulse Oximetry 96 10/28/23 11:53 Oxygen Delivery Method Room Air 10/28/23 11:53 Temperature 98.7 F 10/28/23 11:53 Pulse Rate 96 10/28/23 11:53 Respiratory Rate 16 10/28/23 11:53 Blood Pressure 123/81 10/28/23 11:53 Pulse Oximetry 96 10/28/23 11:53 Oxygen Delivery Method Room Air 10/28/23 11:53 Medical Decision Making MDM Narrative Medical decision making narrative: This patient comes in reporting some altered sensation on the right side of her body. She states that it seems to be improving. She arrives with normal vital signs and normal exam. Her neurologic exam is also completely normal. The patient does describe visual changes that are temporary and likely related to migraine syndrome. Her paresthesias today seem to be related to a similar mechanism. I did discuss lab and imaging options with the patient. She declined any further studies seeing that her neurologic exam is normal and that she is currently on Eliquis. I did describe signs and symptoms that would indicate a need for return and re-evaluation. Discharge Plan Discharge Clinical Impression: Paresthesias Patient Disposition: Home, Self-Care Condition: Stable Additional Instructions: Continue current plans. Follow up with MD or return if worsening symptoms occur. Prescriptions: No Action All Day Allergy (cetirizine) 10 mg capsule 10 mg PO QDAY PRN Eliquis 5 mg tablet 5 mg PO BID acetaminophen [Tylenol Extra Strength] 500 mg tablet 1,000 mg PO Q6H PRN fluoxetine 20 mg capsule 20 mg PO QDAY Qty: 90 0RF Rx Instructions: once daily cyclobenzaprine 5 mg tablet 5 mg PO TID PRN Patient Comments: TAKE 1 TAB BY MOUTH 3 TIMES A DAY NEEDED FOR SEVERE HEADACHES, MAY CAUSE DROWSINESS norethindrone (contraceptive) [Dianelys] 0.35 mg tablet 0.35 mg PO QDAY Qty: 84 3RF Follow Up/Referrals: Jose Joseph PA-C [Primary Care Provider] - Stand Alone Forms: [employer] Info Instructions
== END 2023-10-28 13:10 | disposition home or self-care (01) ==
LOC: ED 12:57
PROVIDERS: Emergency Provider Emergency Medicine Emergency Medical Services; PCP Physician Assistant Medical
DX: R20.2 Paresthesia of skin (principal)
CPT/HCPCS: 99283; 99284

== ENCOUNTER 2023-11-01 10:20 | Outpatient (CLI) | payer OTHER, SELFPAY ==
--- NOTE | 2023-11-01 10:30 | CRLHL7_ITS ---
For Patients: As a result of the Cures Act, medical imaging exams and procedure reports are released immediately into your electronic medical record. You may view this report before your referring provider. If you have questions, please contact your health care provider. INDICATION: Right-sided numbness. COMPARISON: 11/29/2019. TECHNIQUE: Multiplanar T1, T2, FLAIR and diffusion-weighted imaging. FINDINGS: Normal brain parenchymal morphology. Focal T2/FLAIR signal hyperintensity of the left thalamus with corresponding restricted diffusion (series 4, image 20; series 5, image 38) consistent with subacute infarct. Similar tiny subacute infarct of the left occipital lobe (series 5, image 34). No other areas of restricted diffusion. Few scattered foci of T2/FLAIR signal hyperintensity within the white matter consistent with chronic deep white matter small vessel ischemic changes or sequela of migraine headache. No intracranial hemorrhage. No abnormal ventricular dilatation. Intracranial vascular flow voids are preserved. No mass effect or midline shift. No susceptibility artifact of remote hemorrhage. Bilateral orbits are unremarkable. Normal appearing sella. Fluid mucosal thickening within the paranasal sinuses. Mastoid air cells are unremarkable. IMPRESSION: 1. 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 Tiny subacute infarct left occipital lobe. 2. Normal brain parenchymal morphology. Few scattered foci of T2 signal within the white matter consistent with chronic deep white matter small vessel ischemic changes or sequela of migraine headache 3. No acute or chronic intracranial hemorrhage Dictated by Dave Quintero MD @ 11/01/2023 3:28:49 PM (Electronically Signed)
== END 2023-11-01 10:21 | disposition home or self-care (01) ==
LOC: MRI 10:21
PROVIDERS: PCP Physician Assistant Medical; Visit Provider Family Medicine
DX: R20.2 Paresthesia of skin (principal); I63.89 Other cerebral infarction; I26.99 Other pulmonary embolism without acute cor pulmonale; N28.0 Ischemia and infarction of kidney; R76.0 Raised antibody titer
CPT/HCPCS: 70551

== ENCOUNTER 2023-11-09 13:43 | Outpatient (CLI) | payer OTHER, SELFPAY | END 2023-11-09 13:44 | disposition home or self-care (01) | LOC: FRMREF 13:44 | PROVIDERS: PCP Physician Assistant Medical; Visit Provider Family Medicine | DX: Z79.01 Long term (current) use of anticoagulants (principal) | CPT/HCPCS: 85610 ==

== ENCOUNTER 2023-11-13 12:45 | Outpatient (CLI) | payer OTHER, SELFPAY | END 2023-11-13 12:46 | disposition home or self-care (01) | LOC: RAD 12:45 | PROVIDERS: PCP Family Medicine; Visit Provider Family Medicine | DX: N28.0 Ischemia and infarction of kidney (principal); I51.7 Cardiomegaly; R20.2 Paresthesia of skin; R76.0 Raised antibody titer; I26.99 Other pulmonary embolism without acute cor pulmonale | CPT/HCPCS: 93306 ==

== ENCOUNTER 2023-12-20 14:00 | Outpatient (RCR) | payer OTHER, SELFPAY | END 2024-05-06 23:59 | disposition home or self-care (01) | LOC: CCIC 14:00 | PROVIDERS: PCP Physician Assistant Medical; Visit Provider Internal Medicine Hematology & Oncology | DX: I26.99 Other pulmonary embolism without acute cor pulmonale (principal); N28.89 Other specified disorders of kidney and ureter; Z79.01 Long term (current) use of anticoagulants; Z79.82 Long term (current) use of aspirin | CPT/HCPCS: 99214; G0463 ==

== ENCOUNTER 2024-01-31 14:16 | Outpatient (CLI) | payer OTHER, SELFPAY | END 2024-01-31 14:17 | disposition home or self-care (01) | LOC: NFLDREF 02-04 07:27 | PROVIDERS: PCP Family Medicine; Referring Provider Family Medicine; Visit Provider Physician Assistant Medical | DX: N30.00 Acute cystitis without hematuria (principal); B96.20 Unspecified Escherichia coli [E. coli] as the cause of diseases classified elsewhere | CPT/HCPCS: 87086; 87186 ==

== ENCOUNTER 2024-03-04 15:07 | Outpatient (CLI) | payer OTHER, SELFPAY | END 2024-03-04 15:08 | disposition home or self-care (01) | PROVIDERS: PCP Family Medicine; Visit Provider Family Medicine | DX: F41.9 Anxiety disorder, unspecified (principal); R41.3 Other amnesia; I63.9 Cerebral infarction, unspecified; M53.3 Sacrococcygeal disorders, not elsewhere classified; M13.80 Other specified arthritis, unspecified site; Z11.59 Encounter for screening for other viral diseases | CPT/HCPCS: 80053; 80061; 84443; 86039; 86140; 86618; 86803 ==

== ENCOUNTER 2024-05-07 12:57 | Outpatient (CLI) | payer OTHER, SELFPAY | END 2024-05-07 12:58 | disposition home or self-care (01) | LOC: NFLDREF 05-09 12:07 | PROVIDERS: PCP Family Medicine; Referring Provider Family Medicine; Visit Provider Family Medicine | DX: I26.99 Other pulmonary embolism without acute cor pulmonale (principal); Z79.01 Long term (current) use of anticoagulants | CPT/HCPCS: 85610 ==

== ENCOUNTER 2024-05-28 15:00 | Outpatient (RCR) | payer OTHER, SELFPAY | END 2024-11-12 23:59 | disposition home or self-care (01) | LOC: CCIC 15:00 | PROVIDERS: PCP Family Medicine; Visit Provider Internal Medicine Hematology & Oncology | DX: I26.99 Other pulmonary embolism without acute cor pulmonale (principal); Z79.01 Long term (current) use of anticoagulants; Z79.82 Long term (current) use of aspirin; N28.89 Other specified disorders of kidney and ureter | CPT/HCPCS: 99213; 99214; G0463 ==

== ENCOUNTER 2024-06-13 17:03 | Outpatient (CLI) | payer OTHER, SELFPAY | END 2024-06-13 17:04 | disposition home or self-care (01) | LOC: NFLDREF 06-14 09:05 | PROVIDERS: PCP Family Medicine; Referring Provider Family Medicine; Visit Provider Nurse Practitioner Family | DX: N30.90 Cystitis, unspecified without hematuria (principal); N39.0 Urinary tract infection, site not specified | CPT/HCPCS: 87086; 87186 ==

== ENCOUNTER 2024-07-04 07:28 | Outpatient (CLI) | payer OTHER, SELFPAY | END 2024-07-04 07:29 | disposition home or self-care (01) | LOC: NFLDREF 07-05 11:36 | PROVIDERS: PCP Family Medicine; Referring Provider Family Medicine; Visit Provider Family Medicine | DX: I26.99 Other pulmonary embolism without acute cor pulmonale (principal); Z79.01 Long term (current) use of anticoagulants | CPT/HCPCS: 85610 ==

== ENCOUNTER 2024-08-26 22:32 | Outpatient (REF) | payer OTHER, SELFPAY ==
[2024-08-26 23:52] LABS: Basophils Absolute Auto 0.05 K/uL (0.00-0.30); Basophils Percent Auto 0.8 % (0.0-3.0); Eosinophils Absolute Auto 0.07 K/uL (0.00-0.50); Eosinophils Percent Auto 1.1 % (0.0-7.0); Hematocrit 34.9 % (33.0-51.0); Hemoglobin* 11.6 gm/dL (12.0-16.0); Lymphocytes Absolute Auto 1.81 K/uL (0.90-2.90); Lymphocytes Percent Auto 27.9 % (20-44); Mean Corpuscular HGB Conc 33 gm/dL (32-36); Mean Corpuscular Hemoglobin 31 pg (26-34); Mean Corpuscular Volume 94 fL (80-100); Monocytes Percent Auto 6.9 % (0.0-11.0); Neutrophils Absolute Auto 4.11 K/uL (1.7-7.0); Neutrophils Percent Auto 63.3 % (42.0-72.0); Platelet Count* 297 K/uL (140-440); RDW Coefficient of Variation % 13.3 % (11.5-15.5); Red Blood Count 3.73 m/uL (4.00-5.20); White Blood Count* 6.49 K/uL (4.50-11.00)
[2024-08-26 23:53] LABS: Albumin* 4.5 g/dL (3.3-5.0); Slide Review Reflex No
[2024-08-26 23:56] LABS: Alanine Aminotransferase* 25 U/L (4-35); Aspartate Amino Transferase* 31 U/L (12-35); Creatinine* 0.7 mg/dL (0.5-1.5); Estimated Glomerular Filt Rate 107 ml/min
== END 2024-08-26 22:33 | disposition home or self-care (01) ==
LOC: NPINS 22:32
PROVIDERS: PCP Family Medicine; Visit Provider Internal Medicine
DX: R76.0 Raised antibody titer (principal); Z79.899 Other long term (current) drug therapy
CPT/HCPCS: 82040; 82565; 84450; 84460; 85025

== ENCOUNTER 2024-11-07 12:42 | Outpatient (CLI) | payer OTHER, SELFPAY | END 2024-11-07 12:43 | disposition home or self-care (01) | LOC: NFLDREF 11-09 03:08 | PROVIDERS: PCP Family Medicine; Referring Provider Family Medicine; Visit Provider Nurse Practitioner Family | DX: N30.00 Acute cystitis without hematuria (principal); N39.0 Urinary tract infection, site not specified; B37.9 Candidiasis, unspecified | CPT/HCPCS: 87086 ==

== ENCOUNTER 2024-11-14 14:37 | Outpatient (CLI) | payer OTHER, SELFPAY | END 2024-11-14 14:38 | disposition home or self-care (01) | LOC: NFLDREF 11-19 03:48 | PROVIDERS: PCP Family Medicine; Referring Provider Family Medicine; Visit Provider Family Medicine | DX: Z79.01 Long term (current) use of anticoagulants (principal); Z86.711 Personal history of pulmonary embolism | CPT/HCPCS: 85610 ==

== ENCOUNTER 2024-11-22 08:35 | Outpatient (CLI) | payer OTHER, SELFPAY | END 2024-11-22 08:36 | disposition home or self-care (01) | LOC: NFLDREF 11-25 02:04 | PROVIDERS: PCP Family Medicine; Referring Provider Family Medicine; Visit Provider Nurse Practitioner Family | DX: N89.8 Other specified noninflammatory disorders of vagina (principal); R04.0 Epistaxis | CPT/HCPCS: 85610; 87086 ==

== ENCOUNTER 2024-11-25 14:29 | Outpatient (CLI) | payer OTHER, SELFPAY | END 2024-11-25 14:30 | disposition home or self-care (01) | LOC: NFLDREF 11-26 03:05 | PROVIDERS: PCP Family Medicine; Referring Provider Family Medicine; Visit Provider Family Medicine | DX: Z79.01 Long term (current) use of anticoagulants (principal); I26.99 Other pulmonary embolism without acute cor pulmonale | CPT/HCPCS: 85610 ==

== ENCOUNTER 2024-12-31 17:55 | Emergency (ER) | payer OTHER, SELFPAY ==
--- OUTSIDE RECORDS SUMMARY | 2024-12-31 17:58 | XMS_ITS | Encounter Summary ---
Author Organization [facility] Address [address] [place] [address] Phone [email or web address] [email or web address] 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
--- OUTSIDE RECORDS SUMMARY | 2024-12-31 17:58 | XMS_ITS | Encounter Summary ---
Author Organization [facility] Address [address] [place] [address] Phone [email or web address] [email or web address] Care Team Providers Care Ladle Cleaner Name Role Phone Unavailable Primary Care Provider Unavailabl e Encounter Details Date Type Department Care Team (Late st Contact Info) Description 09/03/2024 Claims Summary [facility] [address] [place] [address] Provider, Claims Summary External, [address] [place] [address] Social History Tobacco Use Types Packs/Day Years Used Date Smoking Tobacco: Never Assessed Stress Answer Date Recorded Stress in your Life Not on file 08/03/2024 Dealing with Stress 3 08/03/2024 Comments Unknown Sex and Gender Information Value Date Recorded Sex Assigned at Not on file 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
--- OUTSIDE RECORDS SUMMARY | 2024-12-31 17:58 | XMS_ITS | Encounter Summary ---
Author Organization [facility] Address [address] [place] [address] Phone [email or web address] [email or web address] Care Team Providers Care Chemotherapist Name Role Phone Unavailable Primary Care Provider Unavailabl e Encounter Details Date Type Department Care Team (Late st Contact Info) Description 04/24/2024 Claims Summary [facility] [address] [place] [address] Provider, Claims Summary Lesia, [address] [place] [address] Social History Tobacco Use Types Packs/Day Years Used Date Smoking Tobacco: Never Assessed Comments Unknown Sex and Gender Information Value Date Recorded Sex Assigned at Not on file 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
--- OUTSIDE RECORDS SUMMARY | 2024-12-31 17:58 | XMS_ITS | Clinical Summary ---
Author Organization [facility] Address [address] [place] [address] Care Team Providers Care Linen Manager Name Role Phone Alena Marino MD Primary Care Provider + [phone] Roberto Parisi MD Unavailable Emir Elliott MD Unavailable + [phone] Allergies No known active allergies Medications Citalopram Hydrobromide (CELEXA PO) Active NONFORMULARY Active oxyCODONE-acetamin ophen (PERCOCET) 5-325 MG per tablet Take 1-2 tablets by mouth every 4 hours as needed for pain 20 tablet 0 4 Active tamsulosin (FLOMAX) 0.4 MG 24 hr capsule Take 1 capsule (0.4 mg) by mouth daily 10 capsule 3 4 Active aspirin 81 MG EC tablet Take 1 tablet by mouth daily Active cetirizine (ZYRTEC) 10 MG tablet Take 10 mg by mouth daily Active desvenlafaxine (PRISTIQ) 100 MG 24 hr tablet Take 100 mg by mouth daily Active propranolol (INDERAL) 10 MG tablet Take 10 mg by mouth Prn 4 Active warfarin ANTICOAGULANT (COUMADIN) 5 MG tablet Take 5 mg by mouth daily 4 Active Social History Tobacco Use Types Packs/Day Years Used Date Smoking Tobacco: Never Smokeless Tobacco: Never Tobacco Cessation:Counseling Given: Not Answered Alcohol Use Standard Drinks/Week Comments Yes 0 (1 standard drink = 0.6 oz pur e alcohol) rare PHQ-2 Answer Date Recorded PHQ-2 Score 1 12/18/2023 Adolescent Education Answer Date Record ed Getting School Help Needed Not on file 12/17 Comments Unknown Sex and Gender Information Value Date Recorded Sex Assigned at Female 12/11/2023 2:24 PM CDT Legal Sex Female 4:32 AM WATER REUSE PROGRAM MANAGER Gender Identity Female 12/11/2023 2:24 PM CDT Sexual Orientation Not on file Last Filed Vital Signs Vital Sign Reading Time Taken Comments Blood Pressure 121/83 12/18/2023 10:40 AM CDT Pulse - - Temperature 36.4 C (97.6 F) 10/04/2013 3:40 PM WATER REUSE PROGRAM MANAGER Respiratory Rate 18 10/04/2013 3:40 PM WATER REUSE PROGRAM MANAGER Oxygen Saturation 100% 10/04/2013 5:45 PM WATER REUSE PROGRAM MANAGER Inhaled Oxygen Concentration - - Weight 71.2 kg (157 lb) 12/18/2023 10:40 AM CDT Height 154.9 cm (5' 1) 12/18/2023 10:40 AM CDT Body Mass Index 29.66 12/18/2023 10:40 AM CDT Plan of Treatment Health Maintenance Due Date Last Done Comments ADVANCE CARE PLANNING 1977 ANNUAL REVIEW OF HM ORDERS 1977 CT COLONOGRAPHY 1977 FIT 1977 FLEX SIG 1977 MAMMO SCREENING 1977 sDNA (Cologuard) 1977 YEARLY PREVENTIVE VISIT 1980 COLONOSCOPY 1987 COLORECTAL CANCER SCREENING 1987 HIV SCREENING 1992 HEPATITIS B IMMUNIZATION (1 of 3 - 19+ 3-dose series) 1996 PAP 1998 DIABETES SCREENING 10/04/2016 10/04/2013 LIPID 2017 COVID-19 Vaccine (3 - 2023-2 5 season) 2024 05/20/2021, 04/29/2021 INFLUENZA VACCINE (#1) 2024 PHQ-2 (once per calendar year) 2024 12/18/2023 DTAP/TDAP/TD IMMUNIZATION (2 - Td or Tdap) 06/06/2026 06/06/2016 ZOSTER IMMUNIZATION (1 of 2) 2027 HEPATITIS C SCREENING Completed 06/28/2024 HPV IMMUNIZATION Aged Out No longer e ligible based on patient's age to complete this topic MENINGITIS IMMUNIZATION Aged Out No l onger eligible based on patient's age to complete this topic Pneumococcal Vaccine: Pediatrics (0 to 5 Years) and At-Risk Patients (6 to 49 Years) Aged Out No longer eligible b ased on patient's age to complete this topic Procedures Procedure Name Priority Date/Time Associated Diagnosis Comments HEPATITIS C (HIM EXTERNAL RESULT) Routine 06/28/2024 3:34 PM CDT BASIC METABOLIC PANEL STAT 10/04/2013 4:43 PM WATER REUSE PROGRAM MANAGER from Last 3 Months or Most Recently Relevant to Health Maintenance Results * Hepatitis C (HIM External Result) (06/28/2024 3:34 PM CDT) Hep C HIM See Scanned Document NANCIE OLIVOE 06/28/2024 3:34 PM CDT Narrative NANCIE MONTGOMERY Irma CASI OLIVOE - 06/28/2024 3:34 PM CDT [facility] - External Lab Results us Provider Outside LAB - HIM EXTERNAL RESULT Edite d Result - Final NANCIE LOPEZ [facility] [address] [phone] * (ABNORMAL) Basic metabolic panel (10/04/2013 4:43 PM WATER REUSE PROGRAM MANAGER) Sodium 139 133 - 144 mmol/L [facility] Potassium 3.7 3.4 - 5.3 mmol/L [facility] Chloride 99 94 - 109 mmol/L [facility] Carbon Dioxide 25 20 - 32 mmol/L [facility] Anion Gap 15 6 - 17 mmol/L [facility] Glucose 116(H) 60 - 99 mg/dL [facility] Urea Nitrogen 13 5 - 24 mg/dL [facility] Creatinine 0.87 0.52 - 1.04 mg/dL [facility] GFR Estimate 74 >60 mL/min/1.7 m2 [facility] GFR Estimate If Black 89 >60 mL/min/1.7 m2 [facility] Calcium 9.0 8.5 - 10.4 mg/dL [facility] Blood specimen (specimen) 10/04/2013 4:43 PM WATER REUSE PROGRAM MANAGER 10/04/2013 4:48 PM WATER REUSE PROGRAM MANAGER us Candice Schulz MD LAB - BLOOD ORDERABLES Fin al Result [facility] [address] [place] [address], [facility] [phone] from Last 3 Months or Most Recently Relevant to Health Maintenance [place] [id number] [employer] Care Teams Linen Manager Relationship Specialty Start Date End Date Alena Marino MD [facility] [address] [address] PCP - General Family Medicine 11/16/23 Roberto Parisi MD [address] [place], [place] [id number] Neurology 11/16/23 Emir Elliott MD [address] [place] [address] Assigned Neuroscience Provider 01/16/24
--- OUTSIDE RECORDS SUMMARY | 2024-12-31 17:58 | XMS_ITS | Encounter Summary ---
Author Organization [facility] Address [address] [place] [address] Phone [email or web address] [email or web address] Care Team Providers Care Corporate Strategy Intern Name Role Phone Unavailable Primary Care Provider Unavailabl e Encounter Details Date Type Department Care Team (Late st Contact Info) Description 11/05/2024 Claims Summary [facility] [address] [place] [address] Provider, Claims Summary External, [address] [place] [address] Social History Tobacco Use Types Packs/Day Years Used Date Smoking Tobacco: Never Assessed Stress Answer Date Recorded Stress in your Life Not on file 08/03/2024 Dealing with Stress 3 08/03/2024 Comments Unknown Sex and Gender Information Value Date Recorded Sex Assigned at Not on file 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
--- OUTSIDE RECORDS SUMMARY | 2024-12-31 17:58 | XMS_ITS | Encounter Summary ---
Author Organization [facility] Address [address] [place] [address] Phone [email or web address] [email or web address] Care Team Providers Care Prefitter Name Role Phone Unavailable Primary Care Provider Unavailabl e Encounter Details Date Type Department Care Team (Late st Contact Info) Description 06/05/2024 Claims Summary [facility] [address] [place] [address] Provider, Claims Summary Lesia, [address] [place] [address] Social History Tobacco Use Types Packs/Day Years Used Date Smoking Tobacco: Never Assessed Comments Unknown Sex and Gender Information Value Date Recorded Sex Assigned at Not on file 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
--- OUTSIDE RECORDS SUMMARY | 2024-12-31 17:58 | XMS_ITS | Encounter Summary ---
Author Organization [facility] Address [address] [place] [address] Phone [email or web address] [email or web address] Care Team Providers Care Product Manager Medical Device Name Role Phone Unavailable Primary Care Provider Unavailabl e Encounter Details Date Type Department Care Team (Late st Contact Info) Description 11/29/2024 Claims Summary [facility] [address] [place] [address] Provider, Claims Summary External, [address] [place] [address] Social History Tobacco Use Types Packs/Day Years Used Date Smoking Tobacco: Never Assessed Stress Answer Date Recorded Stress in your Life Not on file 08/03/2024 Dealing with Stress 3 08/03/2024 Comments Unknown Sex and Gender Information Value Date Recorded Sex Assigned at Not on file 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
--- OUTSIDE RECORDS SUMMARY | 2024-12-31 17:58 | XMS_ITS | Clinical Summary ---
Author Organization [facility] Address [address] [place] [address] Care Team Providers Care Gang Pusher Name Role Phone Unassigned, Provider Primary Care Provider Unava ilable Source Comments You are receiving this document as you are listed as the primary care provider,follow-up provider, or the patient has been referred to you for consultation.This is in compliance with the Medicare and[facility] E[facility] Incentive [facility],which states Providers who transition their patient to another setting of careor provider of care or refers their patient to another provider of care shouldprovide summary care record for each transition of care or referral. [facility] Allergies No known active allergies Medications propranolol (INDERAL) 10 MG tablet Take 1 Tablet (10 mg) by mouth three times a day as needed. 10/31/2023 Active cetirizine (ZYRTEC) 10 MG tablet Take 1 Tablet (10 mg) by mouth daily. Active aspirin EC 81 MG enteric coated tablet Take 1 Tablet (81 mg) by mouth daily. Active desvenlafaxine (PRISTIQ) 100 MG 24 hour release tablet Take 1 Tablet (100 mg) by mouth daily. Active warfarin 5 MG tablet Take 1 Tablet (5 mg) by mouth daily. Managed by outside facility/pro vider 03/27/2024 Active Immunizations Immunization Administration Dates Next Due MMR 01/01/1990 Social History Tobacco Use Types Packs/Day Years Used Date Smoking Tobacco: Never Passive Smoke Exposure: Never Smokeless Tobacco: Never Tobacco Cessation:Counseling Given: Not Answered Alcohol Use Standard Drinks/Week Comments Yes 0 (1 standard drink = 0.6 oz pur e alcohol) occasional Comments Unknown Sex and Gender Information Value Date Recorded Sex Assigned at Not on file Legal Sex Female 4:43 AM CDT Gender Identity Not on file Sexual Orientation Not on file Last Filed Vital Signs Vital Sign Reading Time Taken Comments Blood Pressure 131/87 12/22/2023 2:00 PM CDT Pulse 72 12/22/2023 2:00 PM CDT Temperature - - Respiratory Rate 14 12/22/2023 2:00 PM CDT Oxygen Saturation 99% 12/22/2023 2:00 PM CDT Inhaled Oxygen Concentration - - Weight 71.3 kg (157 lb 3.2 oz) 12/15/2023 2:55 P M CDT Height 154.9 cm (5' 1) 12/15/2023 2:55 PM CDT Body Mass Index 29.7 12/15/2023 2:55 PM CDT Plan of Treatment Health Maintenance Due Date Last Done Comments Colon Cancer Screening Plan Due 1977 Hep C Screening (Preventive Services) 1977 Mammogram 1977 HIV Screening (Preventive Services) 1993 Adult Preventive Visit 1995 HepB (1) 1996 Cervical Cancer Screening Due 03/20/2014 03/19/2014 Cholesterol 2022 COVID-19 Vaccine (3 - 2023-2 5 season) 2024 05/20/2021, 04/29/2021 Influenza (#1) 2024 DTaP/Tdap/Td (2 - Tdap) 06/06/2026 06/06/2016 Zoster/Shingles (1 of 2) 2027 HepA Aged Out No longer eligi ble based on patient's age to complete this topic Hib Aged Out No longer eligi ble based on patient's age to complete this topic IPV (Polio) Aged Out No longer eligi ble based on patient's age to complete this topic MCV4 Aged Out No longer eligi ble based on patient's age to complete this topic Meningococcal B Aged Out No longer el igible based on patient's age to complete this topic Pneumococcal Aged Out No longer eligi ble based on patient's age to complete this topic Insurance [phone] (Work) [address] [place] [address] SELF INSURED Care Teams Gang Pusher Relationship Specialty Start Date End Date Unassigned, Provider [address] [place] [address] PCP - General 09/01/00
--- OUTSIDE RECORDS SUMMARY | 2024-12-31 17:58 | XMS_ITS | Encounter Summary ---
Author Organization [facility] Address [address] [place] [address] Phone [email or web address] [email or web address] Care Team Providers Care Drama Director Name Role Phone Unavailable Primary Care Provider Unavailabl e Encounter Details Date Type Department Care Team (Late st Contact Info) Description 08/07/2024 Claims Summary [facility] [address] [place] [address] Provider, Claims Summary External, [address] [place] [address] Social History Tobacco Use Types Packs/Day Years Used Date Smoking Tobacco: Never Assessed Stress Answer Date Recorded Stress in your Life Not on file 08/03/2024 Dealing with Stress 3 08/03/2024 Comments Unknown Sex and Gender Information Value Date Recorded Sex Assigned at Not on file 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
--- OUTSIDE RECORDS SUMMARY | 2024-12-31 17:58 | XMS_ITS | Continuity of Care Document ---
Author Organization [facility] Address [address] [place] [address] Phone Care Team Providers Care Sql Programmer Analyst Name Role Phone Costa Dillon MD Unavailable Unavailable Allergies, Adverse Reactions, Alerts Substance Reaction Status Criticality No Known Allergies Active No Inform ation Medications Medication Instructions Dosage Effective Dates (start - stop) Status Comments METHOTREXATE 2.5 MG TABLET TAKE 8 TABLETS BY MOUTH ONCE WEEKLY - Active Medrol 4 mg tablet take 2 tablets daily x 2 weeks - Active folic acid 1 mg tablet take 1 tablet by oral route every day 1 MG - Active VITAMIN D3 (unknown strength) Not Available - Active aspirin 81 mg chewable tablet chew 1 tablet by oral route every day 81 MG - Active NORETHINDRONE (unknown strength) Not Available - Active acetaminophen 500 mg tablet take 2 tablet by oral route every 6 hours as needed 1000 MG - Active WARFARIN SODIUM (unknown strength) take 1 tablet by oral route every day Not Available - Active DESVENLAFAXINE ER (unknown strength) take 1 tablet by oral route every day Not Available - Active methotrexate sodium 2.5 mg tablet take 8 tablets once weekly - No Longer Active Procedures Procedure Date X-Ray Exam Of Foot 3v Office/Outpatient Visit, Est Complex e/m visit add on Routine Venipuncture Rbc Sed Rate, Automated Assay Of Serum Albumin Assay Of Creatinine Transferase (Ast) (Sgot) Alanine Amino (Alt) (Sgpt) CReactive Protein Complete Cbc WAuto Diff Wbc XRay Exam Of Hand 3v Office/Outpatient Visit, Est Complex e/m visit add on Routine Venipuncture Specimen Handling Rbc Sed Rate, Automated Assay Of Serum Albumin Assay Of Creatinine Transferase (Ast) (Sgot) Alanine Amino (Alt) (Sgpt) CReactive Protein Complete Cbc WAuto Diff Wbc X-Ray Exam Sacroiliac Joints Office/Outpatient Visit, New Routine Venipuncture Specimen Handling Rbc Sed Rate, Automated CReactive Protein Dna Antibody, Single Strand Dna Antibody, [place] Nuclear Antigen Antibodies CCP Antibody Rheumatoid Factor, IGM Rheumatoid Factor, IGG, IGA Vitamin D 25 Hydroxy Complement, Antigen Complete Cbc WAuto Diff Wbc Assay Of Serum Albumin Bilirubin, Total Assay Of Creatinine Assay Alkaline Phosphatase Transferase (Ast) (Sgot) Alanine Amino (Alt) (Sgpt) Advance Directives Directive Yes / No Effective Date File Name No Information Encounters Encounter Description Practice Location Reason(s) For Visit Diagnoses Date Provider Providers Copied on Encounter [facility], [address], [place], [address], [place] tel:[phone] [facility], No Information Wilma Skelton. [address], [place], [address], [place]. tel:[phone] [facility], [address], [place], [address], [place] tel:[phone] [facility], No Information 5 Wilma Skelton. [address], [place], [address], [place]. [phone] Referring Provider: Costa Dillon Conrad, [address], [place], [address]. tel:[phone] Office/Outpa tient Visit, Est [facility], [address], [place], [address], [place] tel:[phone] [facility], Positive ANAOther longterm (current) drug therapyLow back painAntiphosp holipid syndromeUnspe cified symptoms and signs involving cognitive functions and awarenessInfl ammatory polyarthropat hy 5 Wilma Skelton. [address], [address], [place], [address], [place]. tel:[phone] Referring Provider: Costa Martines, [address], [place], [address]. tel:[phone] [facility], [address], [place], [address], [place] tel:[phone] [facility], No Information 4 Wilma Skelton. [address], [address], [place], [address], [place]. tel:[phone] [facility], [address], [place], [address], [place] tel:[phone] [facility], No Information 4 Wilma Skelton. [address], [place], [address], [place]. tel:[phone] Referring Provider: Costa Martines, [address], [place], [address]. tel:[phone] Office/Outpa tient Visit, Est [facility], [address], [place], [address], [place] tel:[phone] [facility], Positive ANAOther longterm (current) drug therapyLow back painAntiphosp holipid syndromeUnspe cified symptoms and signs involving cognitive functions and awarenessInfl ammatory polyarthropat hy 4 Wilma Skelton. [address], [address], [place], [address], [place]. tel:[phone] Referring Provider: Costa Martines, [address], [place], [address]. tel:[phone] [facility], [address], [place], [address], [place] tel:[phone] [facility], No Information 4 Wilma Skelton. [address], [place], [address], [place]. tel:[phone] Referring Provider: Costa Martines, [address], [place], [address]. tel:[phone] Office/Outpa tient Visit, New [facility], [address], [place], [address], [place] tel:[phone] [facility], Positive ANAOther terminal clerk (current) drug therapyLow back painAntiphosp holipid syndromeUnspe cified symptoms and signs involving cognitive functions and awareness 4 Wilma Skelton. [address], [address], [place], [address], . tel:[phone] Referring Provider: Costa Dillon G, [address], [place], [address]. tel:[phone] Family History Family Member Type Diagnosis Age At Onset Maternal grandmother Problem Rheumatoid arthritis Payers Payer name Insurance type Covered libertarian ID Sj arroyo(s) [facility] [id number] Social History Type Description Quantity Date Captured Comments Sex Female Smoking Status No Information Chief Complaint And Reason For Visit No Information Reason For Referral Reason For Referral No Information Plan Of Treatment Date Type Action Status Appointment Irma Montanez BOOKED Future Order: Radiology Order Fo ot X-ray; Complete (3+ views) ([id number]), Collected on: , Sent on: Sent Future Order: Radiology Order Yee nd X-ray; Complete (3+ views) ([id number]), Sent on: Sent Future Order: Radiology Order Sa croiliac Joint X-ray (3+ views) ([id number]), Sent on: Sent History Of Present Illness Encounter Date Complaint History Of Prese nt Illness No Information Functional Status Date Functional Assessmen t No Information Instructions Date Instruction Additional Infor mation No Information Assessments Type Assessment Date No Information Patient Care Teams Name Effective Dates (start - stop) Status Members No Information
--- OUTSIDE RECORDS SUMMARY | 2024-12-31 17:58 | XMS_ITS | Clinical Summary ---
Author Organization [facility] Address [address] [place], [place] [address] Phone [email or web address] [email or web address] Care Team Providers Care Lead Nitrate Processor Name Role Phone Unavailable Primary Care Provider Unavailabl e Encounters Date Type Department Care Team Description 11/29/2024 Claims Summary [facility] [address] [facility] [place] [address] Provider, Claims Summary MD Lesia 11/05/2024 Claims Summary [facility] [address] [place] [address] Provider, Claims Summary MD Lesia 10/02/2024 Claims Summary [facility] [address] [place] [address] Provider, Claims Summary MD Lesia from Last 3 Months Social History Tobacco Use Types Packs/Day Years Used Date Smoking Tobacco: Never Assessed Stress Answer Date Recorded Stress in your Life Not on file 08/03/2024 Dealing with Stress 3 08/03/2024 Comments Unknown Sex and Gender Information Value Date Recorded Sex Assigned at Not on file Legal Sex Female 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
--- OUTSIDE RECORDS SUMMARY | 2024-12-31 17:58 | XMS_ITS | Encounter Summary ---
Author Organization [facility] Address [address] [place] [address] Phone [email or web address] [email or web address] Care Team Providers Care Bow Tacker Name Role Phone Unavailable Primary Care Provider Unavailabl e Encounter Details Date Type Department Care Team (Late st Contact Info) Description 10/02/2024 Claims Summary [facility] [address] [place] [address] Provider, Claims Summary External, [address] [place] [address] Social History Tobacco Use Types Packs/Day Years Used Date Smoking Tobacco: Never Assessed Stress Answer Date Recorded Stress in your Life Not on file 08/03/2024 Dealing with Stress 3 08/03/2024 Comments Unknown Sex and Gender Information Value Date Recorded Sex Assigned at Not on file 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
[2024-12-31 18:15] VITALS: BP 112/63; PULSE 85; RESP 18; TEMP 36.7; O2SAT 99; BMI 28.3
[2024-12-31 19:02] LABS: Basophils Absolute Auto 0.05 K/uL (0.00-0.30); Basophils Percent Auto 0.8 % (0.0-3.0); Eosinophils Absolute Auto 0.07 K/uL (0.00-0.50); Eosinophils Percent Auto 1.1 % (0.0-7.0); Hematocrit 30.2 % (33.0-51.0); Hemoglobin* 10.2 gm/dL (12.0-16.0); Immature Granulocytes Abs Auto 0.01 K/uL (0.00-0.30); Immature Granulocytes Pct Auto 0.2 %; Lymphocytes Absolute Auto 1.52 K/uL (0.90-2.90); Lymphocytes Percent Auto 23.4 % (20-44); Mean Corpuscular HGB Conc 34 gm/dL (32-36); Mean Corpuscular Hemoglobin 32 pg (26-34); Mean Corpuscular Volume 93 fL (80-100); Monocytes Percent Auto 4.9 % (0.0-11.0); Neutrophils Absolute Auto 4.52 K/uL (1.7-7.0); Neutrophils Percent Auto 69.6 % (42.0-72.0); Platelet Count* 334 K/uL (140-440); RDW Coefficient of Variation % 12.9 % (11.5-15.5); Red Blood Count 3.24 m/uL (4.00-5.20); White Blood Count* 6.49 K/uL (4.50-11.00)
[2024-12-31 19:11] LABS: Slide Review Reflex No
[2024-12-31 19:15] LABS: INR 2.26 (0.91-1.10); Prothrombin Time 26.1 Seconds
--- OUTSIDE RECORDS SUMMARY | 2024-12-31 19:33 | XMS_ITS | Clinical Summary ---
Author Organization [facility] Address [address] [place] [address] Care Team Providers Care Machine Heel Sprayer Name Role Phone Unassigned, Provider Primary Care Provider Unava ilable Source Comments You are receiving this document as you are listed as the primary care provider,follow-up provider, or the patient has been referred to you for consultation.This is in compliance with the Medicare and[facility] Incentive Program,which states Providers who [...] patient's age to complete this topic Insurance [phone] (Work) [address] [place] [address] SELF INSURED Care Teams Machine Heel Sprayer Relationship Specialty Start Date End Date Unassigned, Provider [address] [place] [address] PCP - General 09/01/00
--- OUTSIDE RECORDS SUMMARY | 2024-12-31 19:33 | XMS_ITS | Clinical Summary ---
Author Organization [facility] Address [address] [place], [place] [address] Phone [email or web address] [email or web address] Care Team Providers Care Ballistician Name Role Phone Unavailable Primary Care Provider Unavailabl e Encounters Date Type Department Care Team Description 11/29/2024 Claims Summary [facility] [address] [facility] [place] [address] Provider, Claims Summary MD Lesia 11/05/2024 Claims Summary [facility] [address] [place] [address] Provider, Claims Summary MD Lesia 10/02/2024 Claims Summary [facility] [address] [place] [address] Provider, Claims Summary MD Lesia from Last 3 Months Social History Tobacco Use Types Packs/Day Years Used Date Smoking Tobacco: Never Assessed Stress Answer Date Recorded Stress in your Life Not on file 08/03/2024 Dealing with Stress 3 08/03/2024 Comments Unknown Sex and Gender Information Value Date Recorded Sex Assigned at Not on file Legal Sex Female 12:15 PM ADVISORY APPLICATION 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
--- OUTSIDE RECORDS SUMMARY | 2024-12-31 19:33 | XMS_ITS | Clinical Summary ---
Author Organization [facility] Address [address] [place] [address] Care Team Providers Care Animation Artist Name Role Phone Alena Marino MD Primary Care Provider [phone] Roberto Parisi MD Unavailable Emir Elliott MD Unavailable [phone] Allergies No known active allergies Medications Citalopram [...] PM CDT Legal Sex Female 4:32 AM WINDER CONTORT OPERATOR Gender Identity Female 12/11/2023 2:24 PM CDT Sexual Orientation Not on file Last Filed Vital Signs Vital Sign Reading Time Taken Comments Blood Pressure 121/83 12/18/2023 10:40 AM CDT Pulse - - Temperature 36.4 C (97.6 F) 10/04/2013 3:40 PM WINDER CONTORT OPERATOR Respiratory Rate 18 10/04/2013 3:40 PM WINDER CONTORT OPERATOR Oxygen Saturation 100% 10/04/2013 5:45 PM WINDER CONTORT OPERATOR Inhaled Oxygen Concentration - - Weight 71.2 [...] BASIC METABOLIC PANEL STAT 10/04/2013 4:43 PM WINDER CONTORT OPERATOR from Last 3 Months or Most Recently [...] Edite d Result - Final NANCIE LOPEZ [facility] [phone] * (ABNORMAL) Basic metabolic panel (10/04/2013 4:43 PM WINDER CONTORT OPERATOR) Sodium 139 133 - 144 mmol/L [facility] Potassium 3.7 3.4 - 5.3 mmol/L [facility] Chloride 99 94 - 109 mmol/L [facility] Carbon Dioxide 25 20 - 32 mmol/L [facility] Anion Gap 15 6 - 17 mmol/L [facility] Glucose 116(H) 60 - 99 mg/dL [facility] Urea Nitrogen 13 5 - 24 mg/dL [facility] Creatinine 0.87 0.52 - 1.04 mg/dL [facility] GFR Estimate 74 >60 mL/min/1.7 m2 [facility] GFR Estimate If Black 89 >60 mL/min/1.7 m2 [facility] Calcium 9.0 8.5 - 10.4 mg/dL [facility] Blood specimen (specimen) 10/04/2013 4:43 PM WINDER CONTORT OPERATOR 10/04/2013 4:48 PM WINDER CONTORT OPERATOR us Candice Schulz MD LAB - BLOOD ORDERABLES Fin al Result [facility] [address] [place] [address], [facility] [phone] from Last 3 Months or Most Recently Relevant to Health Maintenance [place] [id number] [employer] Care Teams Animation Artist Relationship Specialty Start Date End Date Alena Marino MD [facility] AND [address] [address] PCP - General Family Medicine 11/16/23 Roberto Parisi MD [address] [place], [place] [id number] Neurology 11/16/23 Emir Elliott MD [address] [place] [address] Assigned Neuroscience Provider 01/16/24
--- OUTSIDE RECORDS SUMMARY | 2024-12-31 19:33 | XMS_ITS | Encounter Summary ---
Author Organization [facility] Address [address] [place] [address] Phone [email or web address] [email or web address] Care Team Providers Care Water Server Name Role Phone Unavailable Primary Care Provider Unavailabl e Encounter Details Date Type Department Care Team (Late st Contact Info) Description 04/24/2024 Claims Summary [facility] [address] [place] [address] Provider, Claims Summary Lesia, [address] [place] [address] Social History Tobacco Use Types Packs/Day Years Used Date Smoking Tobacco: Never Assessed Comments Unknown Sex and Gender Information Value Date Recorded Sex Assigned at Not on file Legal Sex Female 12:15 PM RIVETER AUTOMOBILE BRAKES Gender Identity Not on file Sexual Orientation Not on file documented as of this encounter Plan of Treatment Not on file documented as of this encounter Visit Diagnoses Not on filedocumented in this encounter
--- OUTSIDE RECORDS SUMMARY | 2024-12-31 19:33 | XMS_ITS | Encounter Summary ---
Author Organization [facility] Address [address] [place] [address] Phone [email or web address] [email or web address] Care Team Providers Care Front Office Help Name Role Phone Unavailable Primary Care Provider Unavailabl e Encounter Details Date Type Department Care Team (Late st Contact Info) Description 06/05/2024 Claims Summary [facility] [address] [place] [address] Provider, Claims Summary Lesia, [address] [place] [address] Social History Tobacco Use Types Packs/Day Years Used Date Smoking Tobacco: Never Assessed Comments Unknown Sex and Gender Information Value Date Recorded Sex Assigned at Not on file 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
--- OUTSIDE RECORDS SUMMARY | 2024-12-31 19:33 | XMS_ITS | Encounter Summary ---
Author Organization [facility] Address [address] [place] [address] Phone [email or web address] [email or web address] Care Team Providers Care Bottom Cementer Name Role Phone Unavailable Primary Care Provider Unavailabl e Encounter Details Date Type Department Care Team (Late st Contact Info) Description 07/04/2024 Claims Summary [facility] [address] [place] [address] Provider, Claims Summary Lesia, [address] [place] [address] Social History Tobacco Use Types Packs/Day Years Used Date Smoking Tobacco: Never Assessed Comments Unknown Sex and Gender Information Value Date Recorded Sex Assigned at Not on file 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
--- OUTSIDE RECORDS SUMMARY | 2024-12-31 19:33 | XMS_ITS | Encounter Summary ---
Author Organization [facility] Address [address] [place] [address] Phone [email or web address] [email or web address] Care Team Providers Care Quality Control Microbiology Supervisor Name Role Phone Unavailable Primary Care Provider Unavailabl e Encounter Details Date Type Department Care Team (Late st Contact Info) Description 11/05/2024 Claims Summary [facility] [address] [place] [address] Provider, Claims Summary External, [address] [place] [address] Social History Tobacco Use Types Packs/Day Years Used Date Smoking Tobacco: Never Assessed Stress Answer Date Recorded Stress in your Life Not on file 08/03/2024 Dealing with Stress 3 08/03/2024 Comments Unknown Sex and Gender Information Value Date Recorded Sex Assigned at Not on file 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
--- OUTSIDE RECORDS SUMMARY | 2024-12-31 19:33 | XMS_ITS | Encounter Summary ---
Author Organization [facility] Address [address] [place] [address] Phone [email or web address] [email or web address] Care Team Providers Care Residential Program Manager Name Role Phone Unavailable Primary Care Provider Unavailabl e Encounter Details Date Type Department Care Team (Late st Contact Info) Description 10/02/2024 Claims Summary [facility] [address] [place] [address] Provider, Claims Summary External, [address] [place] [address] Social History Tobacco Use Types Packs/Day Years Used Date Smoking Tobacco: Never Assessed Stress Answer Date Recorded Stress in your Life Not on file 08/03/2024 Dealing with Stress 3 08/03/2024 Comments Unknown Sex and Gender Information Value Date Recorded Sex Assigned at Not on file 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
--- OUTSIDE RECORDS SUMMARY | 2024-12-31 19:33 | XMS_ITS | Continuity of Care Document ---
Author Organization [facility] Address [address] [place] [address] Phone Care Team Providers Care Dry Molder Name Role Phone Costa Dillon MD Unavailable [...] Protein Dna Antibody, Single Strand Dna Antibody, [place] Nuclear Antigen Antibodies CCP Antibody Rheumatoid Factor, [...] Copied on Encounter [facility], [address], [place], [address], [place] tel:[phone] [facility], No Information Wilma Skelton. [address], [place], [address], [place]. tel:[phone] [facility], [address], [place], [address], [place] tel:[phone] [facility], No Information 5 Wilma Skelton. [address], [place], [address], [place]. [phone] Referring Provider: Costa Dillon Conrad, [address], [place], [address]. tel:[phone] Office/Outpa tient Visit, Est [facility], [address], [place], [address], [place] tel:[phone] [facility], Positive ANAOther group home (current) drug therapyLow back painAntiphosp holipid syndromeUnspe cified symptoms and signs involving cognitive functions and awarenessInfl ammatory polyarthropat hy 5 Wilma Skelton. [address], [place], [address], [place]. tel:[phone] Referring Provider: Costa Martines, [address], [place], [address]. tel:[phone] [facility], [address], [place], [address], [place] tel:[phone] [facility], No Information 4 Wilma Skelton. [address], [place], [address], [place]. tel:[phone] [facility], [address], [place], [address], [place] tel:[phone] [facility], No Information 4 Wilma Skelton. [address], [place], [address], [place]. tel:[phone] Referring Provider: Costa Martines, [address], [place], [address]. tel:[phone] Office/Outpa tient Visit, Est [facility], [address], [place], [address], [place] tel:[phone] [facility], Positive ANAOther group home (current) drug therapyLow back painAntiphosp holipid syndromeUnspe cified symptoms and signs involving cognitive functions and awarenessInfl ammatory polyarthropat hy 4 Wilma Skelton. [address], [place], [address], [place]. tel:[phone] Referring Provider: Costa Martines, [address], [place], [address]. tel:[phone] [facility], [address], [place], [address], [place] tel:[phone] [facility], No Information 4 Wilma Skelton. [address], [place], [address], [place]. tel:[phone] Referring Provider: Costa Martines, [address], [place], [address]. tel:[phone] Office/Outpa tient Visit, New [facility], [address], [place], [address], [place] tel:[phone] [facility], Positive ANAOther intermediate teacher (current) drug therapyLow back painAntiphosp holipid syndromeUnspe cified symptoms and signs involving cognitive functions and awareness 4 Wilma Skelton. [address], [address], [place], [address], . tel:[phone] Referring Provider: Costa Dillon G, [address], [place], [address]. tel:[phone] Family History Family Member Type Diagnosis Age At Onset Maternal grandmother Problem Rheumatoid arthritis Payers Payer name Insurance type Covered libertarian ID Sj arroyo(s) [employer] [id number] Social History Type Description Quantity Date Captured Comments Sex Female Smoking Status No Information Chief Complaint And Reason For Visit No Information Reason For Referral Reason For Referral No Information Plan Of Treatment Date Type Action Status Appointment Irma Montanez BOOKED Future Order: Radiology Order Fo ot X-ray; Complete (3+ views) ([id number]), Collected on: , Sent on: Sent Future Order: Radiology Order Yee nd X-ray; Complete (3+ views) ([id number]), Sent on: Sent Future Order: Radiology Order Sa croiliac Joint X-ray (3+ views) ([id number]), Sent on: Sent History Of Present Illness Encounter Date Complaint History Of Prese nt Illness No Information Functional Status Date Functional Assessmen t No Information Instructions Date Instruction Additional Infor mation No Information Assessments Type Assessment Date No Information Patient Care Teams Name Effective Dates (start - stop) Status Members No Information
--- OUTSIDE RECORDS SUMMARY | 2024-12-31 19:33 | XMS_ITS | Encounter Summary ---
Author Organization [facility] Address [address] [place] [address] Phone [email or web address] Care Team Providers Care Shrimp Peeler Name Role Phone Unavailable Primary Care Provider Unavailabl e Encounter Details Date Type Department Care Team (Late st Contact Info) Description 09/03/2024 Claims Summary [facility] [address] [place] [address] Provider, Claims Summary External, [address] [place] [address] Social History Tobacco Use Types Packs/Day Years Used Date Smoking Tobacco: Never Assessed Stress Answer Date Recorded Stress in your Life Not on file 08/03/2024 Dealing with Stress 3 08/03/2024 Comments Unknown Sex and Gender Information Value Date Recorded Sex Assigned at Not on file 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
--- OUTSIDE RECORDS SUMMARY | 2024-12-31 19:33 | XMS_ITS | Encounter Summary ---
Author Organization [facility] Address [address] [place] [address] Phone [email or web address] Care Team Providers Care Aboriginal Ceremonial Celebrant Name Role Phone Unavailable Primary Care Provider Unavailabl e Encounter Details Date Type Department Care Team (Late st Contact Info) Description 11/29/2024 Claims Summary [facility] [address] [place] [address] Provider, Claims Summary External, [address] [place] [address] Social History Tobacco Use Types Packs/Day Years Used Date Smoking Tobacco: Never Assessed Stress Answer Date Recorded Stress in your Life Not on file 08/03/2024 Dealing with Stress 3 08/03/2024 Comments Unknown Sex and Gender Information Value Date Recorded Sex Assigned at Not on file Legal Sex Female 12:15 PM RN REVIEW Gender Identity Not on file Sexual Orientation Not on file documented as of this encounter Plan of Treatment Not on file documented as of this encounter Visit Diagnoses Not on filedocumented in this encounter
--- OUTSIDE RECORDS SUMMARY | 2024-12-31 19:33 | XMS_ITS | Encounter Summary ---
Author Organization [facility] Address [address] [place] [address] Phone [email or web address] [email or web address] Care Team Providers Care Aircraft Machinist Helper Name Role Phone Unavailable Primary Care Provider Unavailabl e Encounter Details Date Type Department Care Team (Late st Contact Info) Description 08/07/2024 Claims Summary [facility] [address] [place] [address] Provider, Claims Summary External, [address] [place] [address] Social History Tobacco Use Types Packs/Day Years Used Date Smoking Tobacco: Never Assessed Stress Answer Date Recorded Stress in your Life Not on file 08/03/2024 Dealing with Stress 3 08/03/2024 Comments Unknown Sex and Gender Information Value Date Recorded Sex Assigned at Not on file Legal Sex Female 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
--- NOTE | 2024-12-31 20:34 | ED_ITS ---
HPI - General Adult General Date Seen: 12/31/24 Chief complaint: Epistaxis/Nosebleed Stated complaint: Bloody nose for 2 hrs Time Seen by Provider: 12/31/24 18:33 History of Present Illness HPI narrative: Very pleasant 49-year-old female with a history of pulmonary embolism and history of stroke who is on long-term anticoagulation with warfarin. She also had a recent UTI with disturbance in her INR so now is on a temporarily increase dose of warfarin. She presents to the ER today for epistaxis. She has actually had episodes of epistaxis primarily from her left nostril off and on for about the past month or so. She had had fairly frequent bleeds earlier in the month and saw her doctor and was given referral to ENT. She actually made that appointment but subsequently the nose bleeds stopped, so she canceled it. For the past couple of days she has had episodes of nose bleed. In particular her nose started bleeding again earlier today and has been bleeding for several hours. She has been trying to hold pressure on the nose but is just not helping. She is worried that her INR might be too thin. She is not feeling dizzy or lightheaded. Today nose bleed has been coming from both nostrils, but much heavier on the left and a little bit down the back of her throat. Related Data Home Medications ?Medication ?Instructions ?Recorded ?Confirmed acetaminophen 500 mg tablet 1,000 mg PO Q6H PRN 08/30/22 11/25/24 (Tylenol Extra Strength) cetirizine 10 mg capsule (All Day 10 mg PO QDAY 10/31/23 11/25/24 Allergy (cetirizine)) aspirin 81 mg chewable tablet 81 mg PO QDAY 11/08/23 11/25/24 (Children's Aspirin) cholecalciferol (vitamin D3) 25 25 mcg PO QDAY 05/28/24 11/25/24 mcg (1,000 unit) capsule folic acid 1 mg tablet 1 mg PO DAILY 11/07/24 11/25/24 methotrexate sodium 2.5 mg tablet 10 mg PO 2XW 11/22/24 11/25/24 Previous Rx's ?Medication ?Instructions ?Recorded propranolol 10 mg tablet 10 mg PO TID PRN anxiety #30 tabs 10/31/23 warfarin 5 mg tablet 5 mg PO QDAY #120 tabs 07/12/24 norethindrone (contraceptive) 0.35 0.35 mg PO DAILY #84 tabs 08/13/24 mg tablet fluconazole 150 mg tablet 150 mg PO Q3D 2 doses #2 tabs 11/22/24 desvenlafaxine succinate 100 mg 100 mg PO DAILY #90 tabs 12/30/24 tablet,extended release 24 hr Allergies Allergy/AdvReac Type Severity Reaction Status Date / Time No Known Drug Allergies Allergy Verified 12/31/24 18:17 [facility] Medical History (Updated 12/31/24 @ 20:25 by Alfa Sawyer MD) Left renal mass ?N28.89 - Other specified disorders of kidney and ureter (ICD-10) Bruise ?T14.8XXA - Other injury of unspecified body region, initial encounter (ICD- 10) Lightheaded ?R42 - Dizziness and giddiness (ICD-10) Abscess ?L02.91 - Cutaneous abscess, unspecified (ICD-10) Uses oral contraceptives as primary control method ?Z78.9 - Other specified health status (ICD-10) History of renal calculi ?Z87.442 - Personal history of urinary calculi (ICD-10) Pulmonary embolism (~2021) ?I26.99 - Other pulmonary embolism without acute cor pulmonale (ICD-10) Anxiety and depression ?F41.9 - Anxiety disorder, unspecified (ICD-10) ?F32.A - Depression, unspecified (ICD-10) Surgical History History of cholecystectomy ?Z90.49 - Acquired absence of other specified parts of digestive tract (ICD- 10) Family History (Updated 07/14/22 @ 13:45 by Latasha Jessica) Mother Depression Aunt Ovarian cancer Paternal Grandfather FH: pancreatic cancer Social History Highest level of school completed/degree received: high school graduate Smoking Status: Never smoker Second hand tobacco smoke exposure: No How often do you have a drink containing alcohol: never How often do you have six or more drinks on one occasion: Never AUDIT-C Alcohol total score: 0 Non-prescribed substance use: denies use Caffeine: Yes (2 cups of coffee and diet dr. britt) service: No Exam Narrative: Exam Narrative: Constitutional: Appears well-developed and well-nourished. Alert. Conversant. Non toxic. Polite. Does have active epistaxis HENT: Head: Atraumatic. Nose: Bridge nose normal. No signs of bruising or swelling or trauma. She has active epistaxis from both nostrils but worse on the left. I am not able to visualize any site of bleeding with this both nostrils are filled with blood. I had the patient express and blow her nose and she did get some fairly large clots out of the left nostril. She also spit up a 3 x 4 cm clot from her posterior oropharynx. We applied direct pressure using a nasal clamp to the anterior nose. This was ineffective in achieving hemostasis. I applied 2 sprays of Afrin in the left nostril and reapplied clamp. Hemostasis was still not achieved. I sprayed 2 mL of 1% lidocaine with epinephrine using mucosal atomizer device into her left nostril and applied a cotton ball soaked in 2% viscous lidocaine into the left nostril. After this we also applied a cotton ba ll soaked in TXA into her left nostril. After this we were able to visualize her nose better. Bleeding was still active but much less brisk. She seemed to be bleeding from a small lump or polyp on the nasal septum that is roughly a cm or so deep from the nares. This was cauterized using silver nitrate. A small crack in the cauterized tissue developed on the middle so I recall her eyes do a 2nd time and good hemostasis was achieved. We monitored the patient here in the ER for about an hour and she had no recurrent epistaxis. She passed ambulation trial with no recurrent epistaxis. Mouth/Throat: Oral mucosa is clear and moist. no trismus. Pharynx normal. Tonsils symmetric. No tonsillar enlargement, erythema, or exudate. Eyes: Conjunctivae normal. EOM normal. Pupils equal, round, and reactive to light. No scleral icterus. Neck: Normal range of motion. Neck supple. No tracheal deviation present. Cardiovascular: Normal rate, regular rhythm. No gallop. No friction rub. No murmur heard. Symmetric radial artery pulses skin is pink, warm, dry, well perfused. Pulmonary/Chest: Effort normal. No stridor. No respiratory distress. Musculoskeletal: RUE: Normal range of motion. No tenderness. No deformity LUE: Normal range of motion. No tenderness. No deformity RLE: Normal range of motion. No edema. No tenderness. No deformity LLE: Normal range of motion. No edema. No tenderness. No deformity Neurological: Alert and oriented to person, place, and time. Normal strength. CN II-VII intact. No sensory deficit. GCS eye subscore is 4. GCS verbal subscore is 5. GCS motor subscore is 6. Normal coordination Skin: Skin is warm and dry. No rash noted. No pallor. Normal capillary refill. Psychiatric: Normal mood. Normal affect. Const: Vital Signs, click to edit/add: Vital Signs - 24 hr 12/31/24 18:15 Temperature 98.0 F Pulse Rate [Right Pulse Oximeter] 85 Respiratory Rate 18 Blood Pressure [Ri ght Upper Arm] 112/63 Pulse Oximetry 99 Oxygen Delivery Me thod Room Air Course Vital Signs Vital signs: Initial Vital Signs Temperature 98.0 F 12/31/24 18:15 Temperature Source Temporal Artery Scan 12/31/24 18:15 Pulse Rate 85 12/31/24 18:15 Respiratory Rate 18 12/31/24 18:15 Blood Pressure 112/63 12/31/24 18:15 Blood Pressure Mean 79 12/31/24 18:15 Blood Pressure Position Sitting 12/31/24 18:15 Pulse Oximetry 99 12/31/24 18:15 Oxygen Delivery Method Room Air 12/31/24 18:15 Vital Signs Temperature 98.0 F 12/31/24 18:15 Pulse Rate 85 12/31/24 18:15 Respiratory Rate 18 12/31/24 18:15 Blood Pressure 112/63 12/31/24 18:15 Pulse Oximetry 99 12/31/24 18:15 Oxygen Delivery Method Room Air 12/31/24 18:15 Temperature 98.0 F 12/31/24 18:15 Pulse Rate 85 12/31/24 18:15 Respiratory Rate 18 12/31/24 18:15 Blood Pressure 112/63 12/31/24 18:15 Pulse Oximetry 99 12/31/24 18:15 Oxygen Delivery Method Room Air 12/31/24 18:15 Medical Decision Making MDM Narrative Medical decision making narrative: Pleasant 49-year-old female on warfarin presents to the ER today for epistaxis. Fortunately we were able to identify site of bleeding on the nasal septum inside the left nostril and I was able to cauterize it. At this point hemostasis is achieved we observed the patient for over an hour and she passed ambulation trial without recurrence. At this point I do not think we need to pack her nose. Patient would agree that she would like to avoid packing due to the potential discomfort and risk for infections. She is hemodynamically stable. Lab work shows her hemoglobin is 10 which is down about 1.5 g from her baseline last August. INR today is in the therapeutic zone at 2.26. At this point with hemostasis and no sign of life- threatening bleeding I do not think she needs immediate reversal of her INR. Likewise I think since we were now able to achieve hemostasis it is best for her stay on the warfarin due to the potential risk for strokes or PE if she were to come off anticoagulation. At this point since she is stable enough bleeding I do not think she needs to be admitted for serial hemoglobin monitoring. However I do think the patient would be at risk for recurrent epistaxis since she is anticoagulated. Discussed steps to take at home if she has recurrent nose bleeds and precaution for return to the ER. She had verbalizes her understanding and she is comfortable this plan of care. I also contacted our ENT partner, Dr. Becerra. He has arranged an appoint for this patient to be seen in his clinic tomorrow at 10:00 a.m.. Patient will be able to follow-up in clinic tomorrow. She is comfortable plan for discharge tonight. Lab Data Labs: Lab Results 12/31/24 Range/Units 18:46 WBC 6.49 (4.50-11.00) K/uL RBC 3.24 L (4.00-5.20) m/uL Hgb 10.2 L (12.0-16.0) gm/dL Hct 30.2 L (33.0-51.0) % MCV 93 (80-100) fL MCH 32 (26-34) pg MCHC 34 (32-36) gm/dL RDW Coeff of Shad 12.9 (11.5-15.5) % Plt Count 334 (140-440) K/uL Neut % (Auto) 69.6 (42.0-72.0) % Lymph % (Auto) 23.4 (20-44) % [place] % (Auto) 4.9 (0.0-11.0) % Eos % (Auto) 1.1 (0.0-7.0) % Baso % (Auto) 0.8 (0.0-3.0) % Neut # (Auto) 4.52 (1.7-7.0) K/uL Lymph # (Auto) 1.52 (0.90-2.90) K/uL [place] # (Auto) 0.30 (0.00-0.90) K/UL Eos # (Auto) 0.07 (0.00-0.50) K/uL Baso # (Auto) 0.05 (0.00-0.30) K/uL Abs Immat Gran (auto) 0.01 (0.00-0.30) K/uL Imm/Tot Granulo (auto) 0.2 % INR 2.26 H (0.91-1.10) Discharge Plan Discharge Clinical Impression: Epistaxis Patient Disposition: Home, Self-Care Condition: Stable Instructions: Nosebleed (ED) Additional Instructions: Please come back to the [facility] tomorrow morning 01/01/2025 at 10:00 a.m. for recheck appointment with ENT, Dr. Becerra. His clinic tomorrow will be in the [facility] (here at the [facility]), not in his [facility]. If you have more episodes of bleeding overnight, please clean forward and hold pressure on your nose for 10 minutes. If the bleeding does not stop, please return to the ER. Prescriptions: No Action All Day Allergy (cetirizine) 10 mg capsule 10 mg PO QDAY aspirin [Children's Aspirin] 81 mg tablet,chewable 81 mg PO QDAY folic acid 1 mg tablet 1 mg PO DAILY acetaminophen [Tylenol Extra Strength] 500 mg tablet 1,000 mg PO Q6H PRN propranolol 10 mg tablet 10 mg PO TID PRN (Reason: anxiety) Qty: 30 12RF cholecalciferol (vitamin D3) 25 mcg (1,000 unit) capsule 25 mcg PO QDAY methotrexate sodium 2.5 mg tablet 10 mg PO 2XW fluconazole 150 mg tablet 150 mg PO Q3D Qty: 2 0RF Rx Instructions: may repeat second dose 72 hrs after first dose if symptoms persist warfarin 5 mg tablet 5 mg PO QDAY Qty: 120 0RF Protocol: Dose Management Condition: Monday Dose/Route: 7.5 mg Instruction: 1.5 x 5 mg tablets Condition: Monday Dose/Route: 7.5 mg Instruction: 1.5 x 5 mg tablets Condition: Monday Dose/Route: 7.5 mg Instruction: 1.5 x 5 mg tablets Condition: Monday Dose/Route: 5 mg Instruction: 1 x 5 mg tablet Condition: Dose/Route: 7.5 mg Instruction: 1.5 x 5 mg tablets Condition: Monday Dose/Route: 7.5 mg Instruction: 1.5 x 5 mg tablets Condition: Monday Dose/Route: 7.5 mg Instruction: 1.5 x 5 mg tablets Protocol Text: Adjustment Start Date: Monday12/16/24 INR Value: 1.9 INR Date: 12/16/24 Recheck Date: 12/23/24 Rx Instructions: Take 5 mg by mouth on Monday, Monday, and Monday. Take 7.5 mg by mouth on Monday, , Monday and Monday norethindrone (contraceptive) 0.35 mg tablet 0.35 mg PO DAILY Qty: 84 3RF desvenlafaxine succinate 100 mg tablet extended release 24 hr 100 mg PO DAILY Qty: 90 3RF Follow Up/Referrals: Alena Marino MD [Primary Care Provider] - Stand Alone Forms: Work/School Release, [facility] Info Instructions
== END 2024-12-31 20:37 | disposition home or self-care (01) ==
PROVIDERS: Emergency Provider Emergency Medicine; PCP Family Medicine
DX: R04.0 Epistaxis (principal); Z79.01 Long term (current) use of anticoagulants
CPT/HCPCS: 30901; 36415; 85025; 85610; 99283; A9270

== ENCOUNTER 2025-03-07 08:10 | Outpatient (CLI) | payer OTHER, SELFPAY | END 2025-03-07 08:11 | disposition home or self-care (01) | LOC: NFLDREF 03-10 20:34 | PROVIDERS: PCP Family Medicine; Referring Provider Family Medicine; Visit Provider Family Medicine | DX: D64.9 Anemia, unspecified (principal); Z79.01 Long term (current) use of anticoagulants | CPT/HCPCS: 85610 ==

== ENCOUNTER 2025-03-20 14:25 | Outpatient (CLI) | payer OTHER, SELFPAY ==
--- NOTE | 2025-03-20 14:40 | CRLHL7_ITS ---
For Patients: As a result of the Century Cures Act, medical imaging exams and procedure reports are released immediately into your electronic medical record. You may view this report before your referring provider. If you have questions, please contact your health care provider. INDICATION: BILATERAL SCREENING MAMMOGRAM, ASYMPTOMATIC 50 Y/O FEMALE COMPARISON: 06/09/2022, 09/21/2018 TECHNIQUE: Digital mammogram in CC and MLO projections including computer-aided detection (CAD) and tomosynthesis. BREAST COMPOSITION: The breasts are extremely dense, which lowers the sensitivity of mammography. FINDINGS: No suspicious findings. ASSESSMENT: BI-RADS 1 Negative RECOMMENDATION: Annual screening mammogram. A lay language report of this examination will be provided to the patient. Dictated by: Eladio Tomlin MD @ 03/21/2025 10:13:20 (Electronically Signed)
--- OUTSIDE RECORDS SUMMARY | 2025-03-21 00:49 | XMS_ITS | Clinical Summary ---
Author Organization [facility] Address [address] [place] [address]. [place] [address] Care Team Providers Care Beef Trimmer Name Role Phone Alena Marino MD Primary Care Provider + -[phone] Roberto Parisi MD Unavailable Emir Elliott MD Unavailable + [phone] Allergies No known active allergies Medications Citalopram [...] 5 mg by mouth daily 4 Active Encounters Date Type Department Care Team Description 01/06/2025 Telephone [facility] [address] [place] [id number] [facility] Social History Tobacco [...] PM CDT Legal Sex Female 4:32 AM PRINT BU[employer]ER Gender Identity Female 12/11/2023 2:24 PM CDT Sexual Orientation Not on file Last Filed Vital Signs Vital Sign Reading Time Taken Comments Blood Pressure 121/83 12/18/2023 10:40 AM CDT Pulse - - Temperature 36.4 C (97.6 F) 10/04/2013 3:40 PM PRINT BU[employer]ER Respiratory Rate 18 10/04/2013 3:40 PM PRINT BU[employer]ER Oxygen Saturation 100% 10/04/2013 5:45 PM PRINT BU[employer]ER Inhaled Oxygen Concentration - - Weight 71.2 [...] SCREENING 1987 HIV SCREENING 1992 HEPATITIS B VACCINE (1 of 3 - 19+ 3-dose series) 1996 PAP 1998 DIABETES SCREENING 10/04/2016 10/04/2013 LIPID 2017 COVID-19 VACCINE (2023-2 5 season) 2024 05/20/2021, 04/29/2021 PHQ-2 (once per calendar year) 2024 12/18/2023 INFLUENZA VACCINE (Season Ended) 2025 DTAP/TDAP/TD VACCINE (2 - Td or Tdap) 06/06/2026 06/06/2016 ZOSTER VACCINE (1 of 2) 2027 HEPATITIS C SCREENING Completed 06/28/2024 HPV VACCINE Aged Out No longer eligi ble based on patient's age to complete this topic MENINGITIS VACCINE Aged Out No longer eligible based on patient's age to complete this topic PNEUMOCOCCAL VACCINE: PEDIATRICS (0 to 5 YEARS) AND AT-RISK PATIENTS (6 to 49 YEARS) Aged Out No longer eligible b ased on patient's age to complete this topic Procedures Procedure Name Priority Date/Time Associated Diagnosis Comments ALT (EXTERNAL RESULT) Routine 03/14/2025 10:40 AM CDT AST (EXTERNAL RESULT) Routine 03/14/2025 10:40 AM CDT CREATININE (EXTERNAL RESULT) Routine 03/14/2025 10:40 AM CDT LAB RESULT - HIM SCAN 03/14/2025 12:00 AM CDT ALT (EXTERNAL RESULT) Routine 01/03/2025 3:39 PM CDT AST (EXTERNAL RESULT) Routine 01/03/2025 3:39 PM CDT CREATININE (EXTERNAL RESULT) Routine 01/03/2025 3:39 PM CDT LAB RESULT - HIM SCAN 01/03/2025 12:00 AM CDT HEPATITIS C (HIM EXTERNAL RESULT) Routine 06/28/2024 3:34 PM CDT BASIC METABOLIC PANEL STAT 10/04/2013 4:43 PM PRINT BUYER from Last 3 Months or Most Recently Relevant to Health Maintenance Results * Creatinine (External Result) (03/14/2025 10:40 AM CDT) Only the most recent of2 resultswithin the time period is included. Creatinine (External) 0.700 0.500 - 1.050 mg/dL [facility] Blood 03/14/2025 10:4 0 AM CDT Narrative [facility] - 03/14/2025 10:40 AM CDT [facility] - External Lab Results us Provider Outside LAB - HIM EXTERNAL RESULT Final Result Performing Organization Address [facility] Co de Phone Number [facility] [address] [place] [address], [facility] [phone] * AST (External Result) (03/14/2025 10:40 AM CDT) Only the most recent of2 resultswithin the time period is included. AST (External) 20 10 - 35 U/L [facility] Blood 03/14/2025 10:4 0 AM CDT Narrative [facility] - 03/14/2025 10:40 AM CDT [facility] - External Lab Results us Provider Outside LAB - HIM EXTERNAL RESULT Final Result Performing Organization Address [facility] Co de Phone Number [facility] [address] [place] [address], [facility] [phone] * ALT (External Result) (03/14/2025 10:40 AM CDT) Only the most recent of2 resultswithin the time period is included. ALT (External) 14 6 - 32 IU/L [facility] [place] Blood 03/14/2025 10:4 0 AM CDT Narrative [facility] - 03/14/2025 10:40 AM CDT [facility] - External Lab Results us Provider Outside LAB - HIM EXTERNAL RESULT Final Result Performing Organization Address [facility] Co de Phone Number [facility] [address] [place] [address], [facility] [phone] * Lab Result - HIM Scan (03/14/2025 12:00 AM CDT) Only the most recent of2 resultswithin the time period is included. 03/14/2025 us Provider Outside NON-BEAKER LAB TESTING Final Result * Hepatitis C (HIM External Result) (06/28/2024 3:34 PM CDT) Hep C HIM See Scanned Document NANCIE LOPEZ 06/28/2024 3:34 PM CDT Narrative NANCIE LOPEZ - 06/28/2024 3:34 PM CDT [facility] - External Lab Results us Provider Outside LAB - HIM EXTERNAL RESULT Edite d Result - Final NANCIE LOPEZ [address] [phone] * (ABNORMAL) Basic metabolic panel (10/04/2013 4:43 PM PRINT BUYER) Sodium 139 133 - 144 mmol/L [facility] Potassium 3.7 3.4 - 5.3 mmol/L [facility] Chloride 99 94 - 109 mmol/L [facility] Carbon Dioxide 25 20 - 32 mmol/L [facility] Anion Gap 15 6 - 17 mmol/L [facility] Glucose 116(H) 60 - 99 mg/dL [facility] Urea Nitrogen 13 5 - 24 mg/dL [facility] Creatinine 0.87 0.52 - 1.04 mg/dL [facility] GFR Estimate 74 >60 mL/min/1.7 m2 [facility] GFR Estimate If Black 89 >60 mL/min/1.7 m2 [facility] Calcium 9.0 8.5 - 10.4 mg/dL [facility] Blood specimen (specimen) 10/04/2013 4:43 PM PRINT BUYER 10/04/2013 4:48 PM PRINT BUYER us Candice Schulz MD LAB - BLOOD ORDERABLES Fin al Result [facility] [address] [place] [address], [facility] [phone] from Last 3 Months or Most Recently Relevant to Health Maintenance Insurance [employer] Care Teams Beef Trimmer Relationship Specialty Start Date End Date Alena Marino MD [address] [address] PCP - General Family Medicine 11/16/23 Roberto Parisi MD [address] [place] [address] Neurology 11/16/23 Emir Elliott MD [address] [place] [address] Assigned Neuroscience Provider 01/16/24
--- OUTSIDE RECORDS SUMMARY | 2025-03-21 00:49 | XMS_ITS | Clinical Summary ---
Author Organization [facility] Address [address] [place] [address] Care Team Providers Care Secretary To Board Of Commissioners Name Role Phone Unassigned, Provider Primary Care Provider Unava ilable Source Comments You are receiving this document as you are listed as the primary care provider,follow-up provider, or the patient has been referred to you for consultation.This is in compliance with the Medicare and[facility] E[facility] Incentive Program,which states Providers who [...] Services) 1993 Adult Preventive Visit 1995 HepB Vaccine (1) 1996 Cervical Cancer Screening Due 03/20/2014 03/19/2014 Cholesterol 2022 COVID-19 Vaccine (3 - 2023-2 5 season) 2024 05/20/2021, 04/29/2021 Influenza Vaccine (Season Ended) 2025 DTaP/Tdap/Td Vaccine (2 - Tdap) 06/06/2026 06/06/2016 Zoster/Shingles Vaccine (1 o f 2) 2027 HepA Vaccine Aged Out No longer eligi ble based on patient's age to complete this topic Hib Vaccine Aged Out No longer eligi ble based on patient's age to complete this topic IPV (Polio) Vaccine Aged Out No longe r eligible based on patient's age to complete this topic MCV4 Vaccine Aged Out No longer eligi ble based on patient's age to complete this topic Meningococcal B Vaccine Aged Out No l onger eligible based on patient's age to complete this topic Pneumococcal Vaccine Aged Out No long er eligible based on patient's age to complete this topic Insurance [phone] (Work) [address] [place] [address] [employer] Care Teams Secretary To Board Of Commissioners Relationship Specialty Start Date End Date Unassigned, Provider [address] [place] [id number] PCP - General 09/01/00
== END 2025-03-20 14:26 | disposition home or self-care (01) ==
LOC: MAMMO 14:26
PROVIDERS: PCP Family Medicine; Visit Provider Family Medicine
DX: Z12.31 Encounter for screening mammogram for malignant neoplasm of breast (principal); R92.343 Mammographic extreme density, bilateral breasts
CPT/HCPCS: 77063; 77067

== ENCOUNTER 2025-04-08 09:46 | Outpatient (CLI) | payer OTHER, SELFPAY | END 2025-04-08 09:47 | disposition home or self-care (01) | LOC: NFLDREF 04-10 17:15 | PROVIDERS: PCP Family Medicine; Referring Provider Family Medicine; Visit Provider Family Medicine | DX: I26.99 Other pulmonary embolism without acute cor pulmonale (principal); Z79.01 Long term (current) use of anticoagulants | CPT/HCPCS: 85610 ==

== ENCOUNTER 2025-05-06 09:48 | Outpatient (CLI) | payer OTHER, SELFPAY | END 2025-05-06 09:49 | disposition home or self-care (01) | LOC: NFLDREF 05-09 18:45 | PROVIDERS: PCP Family Medicine; Referring Provider Family Medicine; Visit Provider Physician Assistant Medical | DX: Z79.01 Long term (current) use of anticoagulants (principal) | CPT/HCPCS: 85610 ==

== ENCOUNTER 2025-06-17 08:50 | Outpatient (CLI) | payer OTHER, SELFPAY | END 2025-06-17 08:51 | disposition home or self-care (01) | LOC: NFLDREF 06-20 18:54 | PROVIDERS: PCP Family Medicine; Referring Provider Family Medicine; Visit Provider Family Medicine | DX: Z79.01 Long term (current) use of anticoagulants (principal) | CPT/HCPCS: 85610 ==

== ENCOUNTER 2025-07-15 07:57 | Outpatient (CLI) | payer OTHER, SELFPAY | END 2025-07-15 07:58 | disposition home or self-care (01) | LOC: NFLDREF 07-18 09:51 | PROVIDERS: PCP Family Medicine; Referring Provider Family Medicine; Visit Provider Family Medicine | DX: N93.9 Abnormal uterine and vaginal bleeding, unspecified (principal); Z79.01 Long term (current) use of anticoagulants | CPT/HCPCS: 84443; 85610 ==

== ENCOUNTER 2025-09-02 08:17 | Outpatient (CLI) | payer OTHER, SELFPAY | END 2025-09-02 08:18 | disposition home or self-care (01) | LOC: NFLDREF 09-07 21:05 | PROVIDERS: PCP Family Medicine; Referring Provider Family Medicine; Visit Provider Family Medicine | DX: Z79.01 Long term (current) use of anticoagulants (principal); Z86.711 Personal history of pulmonary embolism | CPT/HCPCS: 85610 ==